=== PATIENT | male | born 1935 | race Caucasian/White ===

== ENCOUNTER → 2020-06-23 13:08 | Outpatient (BNVA) | payer MEDICARE, OTHER, SELFPAY | PROVIDERS: PCP Internal Medicine; Referring Provider Dermatology; Visit Provider Dermatology | DX: Z85.828 Personal history of other malignant neoplasm of skin (principal); L57.0 Actinic keratosis; L82.1 Other seborrheic keratosis; D18.01 Hemangioma of skin and subcutaneous tissue; L91.8 Other hypertrophic disorders of the skin; L21.9 Seborrheic dermatitis, unspecified | CPT/HCPCS: 17000; 17003; 99203 ==

== ENCOUNTER → 2021-06-01 15:38 | Outpatient (BNVA) | payer MEDICARE, OTHER, SELFPAY | PROVIDERS: PCP Internal Medicine; Visit Provider Internal Medicine | DX: R53.83 Other fatigue (principal); E11.9 Type 2 diabetes mellitus without complications; Z85.828 Personal history of other malignant neoplasm of skin; Z87.891 Personal history of nicotine dependence | CPT/HCPCS: 80053; 82607; 82746; 83550; 84443 ==

== ENCOUNTER 2022-01-06 07:37 | Outpatient (CLI) | payer MEDICARE, OTHER, SELFPAY ==
[2022-01-06 08:00] VITALS: BMI 27.3
--- NOTE | 2022-01-06 08:05 | ECG_ITS ---
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 Interpretive Statements NAME OF STUDY: LEXISCAN SESTAMIBI STRESS TEST INDICATION: [Dyspnea on Exertion, ] Procedure: At the baseline, the blood pressure was 132/77 mmHg with a heart rate of 46 bpm. The electrocardiogram showed sinus bradycardia, normal axis with normal ST and T's. The Lexiscan was infused over a period of 20 seconds. A total of 0.4 mg of Lexiscan was infused. The stress phase was continued for a total of 5 minutes. Heart rate was at the end of stress phase was 54 bpm and a blood pressure of 157/81 mmHg. The EKG at the peak infusion revealed since normal sinus rhythm with no significant ST-T wave changes. Sestamibi was injected 20 seconds after the Lexiscan infusion. Blood pressure at the end of recovery phase was 140/82 mmHg with a heart rate of 58 bpm. Conclusion: 1. Normal EKG response to Lexiscan infusion 2. No Lexiscan induced chest pain or cardiac arrhythmia. 3. Normal blood pressure and heart rate response. 4. Sestamibi/sestamibi perfusion scan pending; see separate report. Electronically Signed On 02-04-2022 12:55:54 CDT by Juan Solano M.D. [id number]
--- NOTE | 2022-01-06 08:06 | NMCV_ITS ---
NM jacqui perf SPECT r/s* [id number] Bernardo Ahn Age: 86 Gender: M : 1935 Exam Date: 01/06/2022 08:55 Ordering Phys: Scott Benson MD Technologist: ANNALEE Alvarez Exam Location: [facility] Indications: DYPSNEA STRESS TEST Please [facility] for [facility] findings IMAGE PROTOCOL Rest/Stress 1 Lexiscan Day Radiopharmaceutical Dose (mCi) Administration Site Administered by Rest: Tc-99m 10.6 IV ANNALEE Ma Sestamibi Stress:Tc-99m 32.4 IV ANNALEE Ma Sestamibi Rest: 06-Jan-2022 60 Discovery 630 Stress: 06-Jan-2022 30 Discovery 630 0.4mg Lexiscan. Images obtained in supine and prone position. SPECT RESULTS Technical Quality: Excellent Raw Data Analysis: Normal Image Corrections: No attenuation or motion correction applied Summed Stress Score: 1 Summed Rest Score: 1 Summed Difference Score: 0 PERFUSION FINDINGS SPECT images demonstrate homogeneous tracer distribution throughout the myocardium. FUNCTIONAL RESULTS (calculated via Gated SPECT) Stress Image LV EF (%): 71 Stress EDV (mL):87 TID: 1.04 Stress ESV (mL):25 FUNCTIONAL FINDINGS: There is normal left ventricular systolic function. IMPRESSIONS 1. Normal myocardial perfusion imaging with no evidence of ischemia 2. LV systolic function is normal Juan Solano MD (Electronically Signed) Final Date: 06 January 2022 15:31 S
[2022-01-06] MEDS: regadenoson 0.4 Mg/5 ml Syringe IVP (09:24)
[2022-01-06 09:33] VITALS: BP 140/82; PULSE 58
== END 2022-01-06 07:38 | disposition home or self-care (01) ==
PROVIDERS: Family Provider Internal Medicine; PCP Internal Medicine; Visit Provider Internal Medicine
DX: R06.09 Other forms of dyspnea (principal); R06.02 Shortness of breath
CPT/HCPCS: 78452; 93017; A9500; J2785

== ENCOUNTER → 2023-01-22 08:48 | Outpatient (BNVA) | payer MEDICARE, OTHER, SELFPAY | PROVIDERS: Family Provider Internal Medicine; PCP Internal Medicine; Referring Provider Dermatology; Visit Provider Podiatrist Foot & Ankle Surgery | DX: M20.42 Other hammer toe(s) (acquired), left foot (principal); M20.41 Other hammer toe(s) (acquired), right foot; M25.871 Other specified joint disorders, right ankle and foot; L60.3 Nail dystrophy | CPT/HCPCS: 73630; 99204 ==

== ENCOUNTER → 2023-04-26 13:21 | Outpatient (BNVA) | payer MEDICARE, OTHER, SELFPAY | PROVIDERS: Family Provider Internal Medicine; PCP Internal Medicine; Visit Provider Podiatrist Foot & Ankle Surgery | DX: M20.42 Other hammer toe(s) (acquired), left foot (principal); M20.41 Other hammer toe(s) (acquired), right foot; M25.871 Other specified joint disorders, right ankle and foot; M25.872 Other specified joint disorders, left ankle and foot | CPT/HCPCS: 99214 ==

== ENCOUNTER → 2023-06-14 13:52 | Outpatient (BNVA) | payer MEDICARE, OTHER, SELFPAY | PROVIDERS: Family Provider Internal Medicine; Visit Provider Nurse Practitioner Family | DX: Z85.828 Personal history of other malignant neoplasm of skin (principal); D22.5 Melanocytic nevi of trunk; L81.4 Other melanin hyperpigmentation; L82.1 Other seborrheic keratosis; L57.8 Other skin changes due to chronic exposure to nonionizing radiation; L57.0 Actinic keratosis | CPT/HCPCS: 17000; 17003; 99213 ==

== ENCOUNTER 2024-05-12 08:49 | Emergency (ER) | payer MEDICARE, OTHER, SELFPAY ==
[2024-05-12 09:55] VITALS: BP 109/72; PULSE 69; RESP 18; TEMP 36.8; O2SAT 96; BMI 25.0
--- NOTE | 2024-05-12 12:04 | W.ED.BACK ---
Documented by User: AURELIANO Kelley 05/12/24 15:19 HPI - Back Pain/Injury General: Chief Complaint: Back Pain/Injury Stated Complaint: low back/ leg pain Time Seen by Provider: 05/12/24 11:55 Source: patient and family Mode of arrival: wheelchair Limitations: no limitations History of Present Illness: Patient is a nice 89-year-old male who presents to ED today along with his 2 daughters for evaluation of lower back pain. Family states he has complained of pain at least over a month regarding his lower back. He has been seen twice through [facility] walk-in clinics as well as last week at [facility]. He has been on steroids and muscle relaxers. He does feel like the steroids helped for a few days but is now back to having pain. He describes as a throbbing sensation to his lower back. He states his back pain does seem to interfere with his gait stating that his legs sometimes will feel like Jell-O . Family does report an approximate 10 pound weight loss noted at his last visit at [facility]. Family also reporting intermittent sweats and decreased appetite. MD elicited complaint: back pain Onset (ago): week(s) Timing: constant Severity: moderate Similar Symptoms Previously: No Location: lumbar spine Radiation: left upper leg and right upper leg Exacerbating factors: movement, walking and lifting Relieving factors: none Associated symptoms: Reports no associated symptoms, chills, difficulty walking and urinary frequency (BPH like symptoms-frequent night urination); Deny abdominal pain, dysuria, fever(s), nausea, urinary urgency or vomiting Work related injury: No Review of Systems Const: Reports: chills, change in appetite and change in weight; Denies: fever(s) or body aches Card: Denies: chest pain Resp: Denies: dyspnea GI: Denies: abdominal pain, nausea, vomiting or diarrhea : Reports: urinary frequency; Denies: flank pain, dysuria, urinary urgency or hematospermia Musc: Reports: back pain; Denies: neck pain, extremity pain, extremity swelling, joint pain or joint swelling Skin/Breast: Denies: rash Neuro: Reports: weakness in extremities and difficulty walking; Denies: headache(s), numbness in extremities or sensory changes PFS ED PFSH: Medical History Pain of right sacroiliac joint Sciatica, right side Fatigue History of nonmelanoma skin cancer Social History Smoking and tobacco/nicotine status: never used tobacco/nicotine Physical Exam Const: COMMON NORMALS: no acute distress, average body habitus, patient oriented x3, no limitations, healthy appearing, alert and well nourished GENERAL APPEARANCE: cooperative Neck/C-Spine: COMMON NORMALS: no lymphadenopathy Resp: COMMON NORMALS: normal respiratory effort and clear to auscultation bilaterally AUSCULTATION: clear to auscultation bilaterally Cardio: COMMON NORMALS: regular rate and regular rhythm RATE: regular rate RHYTHM: regular rhythm GI: COMMON NORMALS: Normal to inspection, nondistended, normoactive bowel sounds present, Soft to palpation and non-tender PALPATION: Yes Soft to palpation : COMMON NORMALS: Yes no CVA tenderness BLADDER/KIDNEY EXAM: Yes no CVA tenderness Back/Pelvis: COMMON NORMALS: no CVA tenderness THORACIC SPINE/UPPER BACK: No thoracic spinal tenderness LUMBAR SPINE/LOWER BACK: Yes lumbar spinal tenderness and Yes straight leg raise negative bilaterally PELVIS: Yes buttocks normal SACRUM: tenderness COCCYX: no tenderness Extremity: COMMON NORMALS: normal to inspection, full ROM and capillary refill normal GENERAL: Yes normal exam except as noted Neuro: COMMON NORMALS: patient oriented x3, moves all extremities, no focal motor deficits and no sensory deficits noted SENSORIUM/ORIENTATION: Yes alert MOTOR EXAM: 5/5 motor strength present throughout Course Vital Signs: Vital signs: Vital Signs Temperature 98.3 F 05/12/24 09:55 Pulse Rate 81 05/12/24 15:41 Respiratory Rate 16 05/12/24 14:30 Blood Pressure 143/62 05/12/24 14:30 Pulse Oximetry 96 05/12/24 15:41 Oxygen Delivery Me thod Room Air 05/12/24 14:30 MDM - Back Pain/Injury Medical Decision Making Patient is a nice 89-year-old male here for over a month of lower back pain. He has been seen on 3 different visits for this. Based on his history, unfortunately I suspected metastatic bone cancer. CT imaging of his lumbar spine and bony pelvis were obtained which does confirm this. Suspect colon or prostate for primary site however further imaging is needed. Discussed with Dr. Mcnair who recommends follow-up with his primary care provider for further scans and referral for biopsy. They can then follow-up with oncology/hematology. Will give him pain medications to help with his discomfort. He does live alone and is not wanting senior care facility. Family is there to help him if/when needed. Of note-recent labs through [facility] obtained and shows an alk phos of 1500 consistent with his bony involvement. PSA was also 12.0. Medical Records I reviewed the patient's medical records. Labs I reviewed the patient's lab results. Radiology Impressions Lumbar Spine CT 05/12/24 12:35 IMPRESSION: 1. Diffuse sclerotic lesions throughout the lumbar spine and bony pelvis suspicious for blastic metastasis. 2. Mild compression of the superior endplate of L2. 3. Slight anterolisthesis L4 on L5 with severe central canal stenosis due to disc bulge and facet arthropathy and ligamentum flavum hypertrophy. 4. Partially visualized retroperitoneal and periaortic lymphadenopathy. Pelvis CT 05/12/24 12:35 IMPRESSION: 1. Diffuse sclerotic lesions throughout the visualized bony structures suspicious for blastic metastasis. 2. Para-aortic and retroperitoneal lymphadenopathy extending to both iliac change. Internal iliac and pelvic sidewall lymphadenopathy. 3. Enlarged prostate measuring 4.8 cm with bladder outlet obstruction. Recommend correlation PSA. All radiology interpretation(s) finalized by discharge Discharge Plan Discharge Patient Disposition: Home Clinical Impression: Cancer, metastatic to bone Condition: Stable Prescriptions: New hydrocodone-acetaminophen 5-325 mg tablet 1 tab PO .4-6 PRN (Reason: pain) Qty: 20 0RF No Action (DME) CO-Poly Custom insoles See Rx Instructions .Route .MEDSUPPLY Qty: 1 0RF Rx Instructions: As directed by [facility] tizanidine 4 mg tablet 4 mg PO Q6H PRN (Reason: LOW BACK PAIN/SPASMS) methylprednisolone 4 mg tablets,dose pack See Rx Instructions .ROUTE .COMPLEX Rx Instructions: TAKE DIRECTED PER PACKAGE INSTRUCTIONS. Discharge Orders: Discharge ED (Routine); Ordered 05/12/24 Ordered By: Fallon Zhang Patient Instructions: Opioid Safety, Pain Management Activity Restrictions/Additional Instructions: As we discussed I would like him to follow-up with his primary care provider soon as possible. They will need to do additional scans to determine primary location of cancer and set up for biopsy. From there patient will need referral to oncology/hematology. Pain medications have been called into his pharmacy of choice. Recommend using a walker or some type of assistance at all times with ambulation to help prevent falls. 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 [employer] Fwd Documented by User: Joel Mcnair, 05/12/24 18:20 HPI - Back Pain/Injury General: Chief Complaint: Back Pain/Injury Stated Complaint: low back/ leg pain Time Seen by Provider: 05/12/24 11:55 PFSH ED PFSH: Medical History Pain of right sacroiliac joint Sciatica, right side Fatigue History of nonmelanoma skin cancer Social History Smoking and tobacco/nicotine status: never used tobacco/nicotine Course Vital Signs: Vital signs: Vital Signs Temperature 98.3 F 05/12/24 09:55 Pulse Rate 81 05/12/24 15:41 Respiratory Rate 16 05/12/24 14:30 Blood Pressure 143/62 05/12/24 14:30 Pulse Oximetry 96 05/12/24 15:41 Oxygen Delivery Me thod Room Air 05/12/24 14:30 MDM - Back Pain/Injury Medical Decision Making Patient is a nice 89-year-old male here for over a month of lower back pain. He has been seen on 3 different visits for this. Based on his history, unfortunately I suspected metastatic bone cancer. CT imaging of his lumbar spine and bony pelvis were obtained which does confirm this. Suspect colon or prostate for primary site however further imaging is needed. Discussed with Dr. Mcnair who recommends follow-up with his primary care provider for further scans and referral for biopsy. They can then follow-up with oncology/hematology. Will give him pain medications to help with his discomfort. He does live alone and is not wanting senior care facility. Family is there to help him if/when needed. Of note-recent labs through [facility] obtained and shows an alk phos of 1500 consistent with his bony involvement. PSA was also 12.0. Chart reviewed and patient discussed with midlevel. Agree with assessment and plan. Labs Radiology Impressions Lumbar Spine CT 05/12/24 12:35 IMPRESSION: 1. Diffuse sclerotic lesions throughout the lumbar spine and bony pelvis suspicious for blastic metastasis. 2. Mild compression of the superior endplate of L2. 3. Slight anterolisthesis L4 on L5 with severe central canal stenosis due to disc bulge and facet arthropathy and ligamentum flavum hypertrophy. 4. Partially visualized retroperitoneal and periaortic lymphadenopathy. Pelvis CT 05/12/24 12:35 IMPRESSION: 1. Diffuse sclerotic lesions throughout the visualized bony structures suspicious for blastic metastasis. 2. Para-aortic and retroperitoneal lymphadenopathy extending to both iliac change. Internal iliac and pelvic sidewall lymphadenopathy. 3. Enlarged prostate measuring 4.8 cm with bladder outlet obstruction. Recommend correlation PSA. Discharge Plan Discharge Patient Disposition: Home Clinical Impression: Cancer, metastatic to bone Condition: Stable Prescriptions: New hydrocodone-acetaminophen 5-325 mg tablet 1 tab PO .4-6 PRN (Reason: pain) Qty: 20 0RF No Action (DME) CO-Poly Custom insoles See Rx Instructions .Route .MEDSUPPLY Qty: 1 0RF Rx Instructions: As directed by [facility] tizanidine 4 mg tablet 4 mg PO Q6H PRN (Reason: LOW BACK PAIN/SPASMS) methylprednisolone 4 mg tablets,dose pack See Rx Instructions .ROUTE .COMPLEX Rx Instructions: TAKE DIRECTED PER PACKAGE INSTRUCTIONS. Discharge Orders: Discharge ED (Routine); Ordered 05/12/24 Ordered By: Fallon Zhang Patient Instructions: Opioid Safety, Pain Management Activity Restrictions/Additional Instructions: As we discussed I would like him to follow-up with his primary care provider soon as possible. They will need to do additional scans to determine primary location of cancer and set up for biopsy. From there patient will need referral to oncology/hematology. Pain medications have been called into his pharmacy of choice. Recommend using a walker or some type of assistance at all times with ambulation to help prevent falls. 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
--- NOTE | 2024-05-12 12:35 | CT_ITS ---
WS: [id number] CT LUMBAR SPINE TECHNIQUE: Noncontrast CT of the lumbar spine with coronal and sagittal reformatted images. CLINICAL INFORMATION: pain COMPARISON: None. DLP: 951.[address] scans at [facility] use at least one of these dose optimization techniques: automated e xposure control; mA and/or kV adjustment per patient size (includes targeted exams where dose is matc hed to clinical indication); or iterative reconstruction. FINDINGS: Diffuse sclerotic lesions throughout the visualized bony structures suspicious for blastic metastasis . Mild compression superior end plate L2. L1-L2: Normal L2-L3: Mild annular bulging. Moderate facet arthropathy. Mild bilateral foraminal narrowing. L3-L4: Mild annular bulging. Moderate central canal stenosis. Moderate facet arthropathy and ligament um flavum hypertrophy. L4-L5: Severe central canal stenosis. Advanced facet arthropathy with ligamentum flavum hypertrophy. Slight anterolisthesis L4 on L5. Mild LEFT and no significant RIGHT foraminal narrowing. L5-S1: Mild disc bulging with endplate ridging. Moderate to advanced facet arthropathy. Foramen are p atent. Small esophageal hiatal hernia. Nodular LEFT adrenal gland. RIGHT adrenal gland is normal. Periaortic and retroperitoneal lymphadenopathy. Partially visualized RIGHT hepatic cyst. CT/CT lumbar spine wo con* [id number] IMPRESSION: 1. Diffuse sclerotic lesions throughout the lumbar spine and bony pelvis suspi cious for blastic metastasis. 2. Mild compression of the superior endplate of L2. 3. Slight anterolisthesis L4 on L5 with severe central canal stenosis due to d isc bulge and facet arthropathy and ligamentum flavum hypertrophy. 4. Partially visualized retroperitoneal and periaortic lymphadenopathy.
--- NOTE | 2024-05-12 12:35 | CT_ITS ---
WS: [id number] Noncontrast CT bony pelvis TECHNIQUE: CT bony pelvis with coronal and sagittal reformatted images. CLINICAL INFORMATION: pain COMPARISON: None. DLP: 951.[address] scans at [facility] use at least one of these dose optimization techniques: automated e xposure control; mA and/or kV adjustment per patient size (includes targeted exams where dose is matc hed to clinical indication); or iterative reconstruction. FINDINGS: Diffuse sclerotic lesions throughout the visualized bony structures likely due to blastic metastasis. Enlarged prostate measuring 4.8 cm. Recommend correlation for PSA. Evidence of bladder outlet obstru ction. Sigmoid diverticulosis. Partially visualized periaortic and retroperitoneal lymphadenopathy. N o inguinal lymphadenopathy. Bilateral internal iliac and pelvic sidewall lymphadenopathy. CT/CT bony pelvis [id number] IMPRESSION: 1. Diffuse sclerotic lesions throughout the visualized bony structures suspici ous for blastic metastasis. 2. Para-aortic and retroperitoneal lymphadenopathy extending to both iliac kuldeep nge. Internal iliac and pelvic sidewall lymphadenopathy. 3. Enlarged prostate measuring 4.8 cm with bladder outlet obstruction. Recomme nd correlation PSA.
[2024-05-12 12:54] VITALS: RESP 20; O2SAT 96
[2024-05-12] MEDS: morphine 4 mg/mL SDV 1 mL IVP (12:54)
[2024-05-12] MEDS: orphenadrine 30 mg/mL Inj 2 mL 60 MG IV (12:58)
[2024-05-12] MEDS: dexamethasone 10 mg/mL INJ 8 MG IV (13:01)
[2024-05-12 13:04] VITALS: BP 115/65; PULSE 67; RESP 16; O2SAT 93
[2024-05-12 14:30] VITALS: BP 143/62; PULSE 68; RESP 16; O2SAT 93
[2024-05-12 15:41] VITALS: PULSE 81; O2SAT 96
== END 2024-05-12 15:44 | disposition home or self-care (01) ==
PROVIDERS: Emergency Provider Physician Assistant
DX: C79.51 Secondary malignant neoplasm of bone (principal); C80.1 Malignant (primary) neoplasm, unspecified
CPT/HCPCS: 72131; 72192; 96374; 96375; 99285; J1100; J2270; J2360

== ENCOUNTER 2024-05-27 09:07 | Outpatient (CLI) | payer MEDICARE, OTHER, SELFPAY ==
[2024-05-27 10:05] LABS: Basophils % 0.6 %; Eosinophils % 0.6 %; Lymphocytes # 0.7 10^3/uL (0.8-4.8); Lymphocytes % 11.6 %; Mean Corpuscular HGB Conc 31.6 g/dL (30-55); Mean Corpuscular Hemoglobin 28.7 pg (27-33); Mean Corpuscular Volume 90.9 fl (82-101); Mean Platelet Volume 9.8 fL (7.4-10.4); Monocytes # 0.5 10^3/uL (0.2-0.9); Monocytes % 8.3 %; Neutrophils # 4.77 10^3/uL (1.8-7.7); Neutrophils % 76.7 %; Nucleated Red Blood Cells % 0 %; Platelet Count 273 10^3/cmm (157-399); Red Blood Count 3.41 10^6/uL (3.85-5.65); Red Cell Distribution Width 14.2 % (12.1-15.1); White Blood Count 6.23 10^3/uL (3.29-11.43)
[2024-05-27 10:21] LABS: Anion Gap 14.8 (5-19); Blood Urea Nitrogen 15 mg/dL (8-23); Calcium 8.2 mg/dL (8.5-10.5); Carbon Dioxide 24 mmol/L (22-29); Chloride 106 mmol/L (98-107); Glucose 104 mg/dL (65-115); Osmolality Calculated 293 mOsm/kg (285-295); Potassium 3.8 mmol/L (3.5-5.1); Sodium 141 mmol/L (136-145)
== END 2024-05-27 09:08 | disposition home or self-care (01) ==
LOC: LAB 09:11
PROVIDERS: PCP Nurse Practitioner Family; Visit Provider Urology
DX: Z01.818 Encounter for other preprocedural examination (principal); R97.20 Elevated prostate specific antigen [PSA]
CPT/HCPCS: 36415; 80048; 85025

== ENCOUNTER → 2024-05-28 08:48 | Outpatient (BNVA) | payer MEDICARE, OTHER, SELFPAY | PROVIDERS: PCP Nurse Practitioner Family; Visit Provider Internal Medicine Cardiovascular Disease | DX: Z01.818 Encounter for other preprocedural examination (principal); R97.20 Elevated prostate specific antigen [PSA] | CPT/HCPCS: 93005 ==

== ENCOUNTER 2024-06-23 07:41 | Oncology outpatient (recurring) (ONCR) | payer MEDICARE, OTHER, SELFPAY ==
--- OUTSIDE RECORDS SUMMARY | 2024-06-23 07:26 | XMS_ITS ---
Author Name Unknown Organization [facility] Address [address] [place] [address] Care Team Providers Care Ore Mixer Name Role Phone Michellematilde POEN Lisa Primary Care Provider UnavailTAM Del Valle Unavailable [phone] JHONNY PULIDO Unavailable [phone] Allergies No Known Allergies REASON FOR VISIT Biopsy Antibiotic Medications Medication SIG (Take, Route, Frequency, Duration) Notes Start Date End Date Status Cipro 500 MG 1 tablet Orally ever y 12 hrs for 3 days start on 06/16/2024 06/12/2024 06/15/2024 Active Encounters Encounter Location Date Provider Diagnosis [facility] [address] [place] [address] 06/12/2024 JHONNY PULIDO Plan Of Treatment Medication Medication Name Sig Start Date Stop Date Notes Cipro 500 MG 1 tablet Orally ever y 12 hrs for 3 days 06/12/2024 06/15/2024 start on 06/16/2024 Next Appt Details Provider Name:JHONNY Pak, 07/03/2024 04:15:00 PM, [address] [place], [address], Progress Notes * Harman EDWARDSOB:1935 ( 89 yo M)Acc No.[id number]:06/12/2024 Patient:?LUCASBernardo Carr :1935???Age:89 Y???Sex:Male Address:[address] [place] [address], [address] * Refills? Start Cipro Tablet, 500 MG, Orally, 6, 1 tablet, every 12 hrs, 3 days, Refills=0 Subjective: * Chief Complaints: * ???Biopsy Antibiotic * Medical History:? * Surgical History:? * Hospitalization/Major Diagno stic Procedure:? * Medications:? * Allergies:?N.K.D.A.no[Allerg ies Verified] Objective: * Vitals:? * Physical Examination:? Assessment: Plan: * Treatment: * Procedure Codes:? * true * Date:? Generated for Bozena jacob/Spencer/Tal on:?06/23/2024 07:26 AM CDT
--- OUTSIDE RECORDS SUMMARY | 2024-06-23 07:26 | XMS_ITS | Patient Health Record ---
Author Name Unknown Organization [facility] [employer] Address [address] [place] [address] Care Team Providers Care Grounds Maintenance Manager Name Role Phone Michelle POENEmman Primary Care Provider TAM Headley Unavailable [phone] JHONNY FARMER Unavailable [phone] Allergies No Known Allergies Results Component Value Reference Range Notes UTI Pathogen Panel PCR Reviewed date:05/23/2024 10:01:09 AM Interpretation: Performing Lab: Notes/Report: Urinalysis, Routine Reviewed date:05/22/2024 11:02:04 AM Interpretation: Performing Lab: Notes/Report: Urine-Color yellow Appearance clear Glucose - Bilirubin 2+ Ketones trace Specific Marmaduke 1.030 Occult Blood trace pH 6.0 Urine Protein - Urobilinogen,Semi-Qn 2+ Nitrite, Urine - WBC Esterase 3+ Reason For Referral No Information Medications Medication SIG (Take, Route, Frequency, Duration) Notes Start Date End Date Status HYDROcodone-Acetaminophen 5-325 MG 1 tablet as needed Orally every 6 hrs Active Bicalutamide 50 MG TAKE 1 TABLET BY YAN TH DAILY for 90 Active Problems Problem Type SNOMED Code ICD Code Onset Dates Problem Status W/U Status Risk Notes Problem Malignant tumor of prostate (163152963) Prostate cancer (C61) Active confirmed Vital Signs Heart Rate 66 /min 05/22/2024 Blood pressure diastolic 75 mm Hg 05/22/2024 Height-cm 172.72 cm 05/22/2024 Weight-kg 75.3 kg 05/22/2024 Height 68 in 05/22/2024 Blood pressure systolic 121 mm Hg 05/22/2024 Weight 166 lbs 05/22/2024 BMI 25.24 kg/m2 05/22/2024 Procedures Procedure Date Ordered Date Performed Result Body Sit e Bladder Scan 05/22/2024 05/22/2024 N/A Encounters Encounter Location Date Provider Diagnosis [facility], [facility] [address] [place] [address] 06/17/2024 JHONNY VELÁSQUEZER Elevated PSA R97.20 [facility] [employer], [facility] [address] [place] [address] 05/22/2024 TAM RYAN Prostate cancer C61 ; Elevated PSA R97.20 ; Bone lesion M89.9 ; Increased urinary frequency R35.0 ; Abnormal abdominal CT scan R93.5 ; Abnormal urine R82.90 and Surgical counseling visit Z71.89 [facility], [facility] [address] [facility] [address] [place] [address] 05/15/2024 [facility] [employer], [facility] [address] [facility] [address] [place] [address] 05/22/2024 [facility] Preop testing Z01.81 8 and Elevated PSA R97.20 [facility] [employer], [facility] [address] [place] [address] 06/12/20[address]AM [address]YAN [facility] [employer], [facility] [address] [place] [address] 06/12/2024 JHONNY VELÁSQUEZER Assessments Encounter Date Diagnosis (ICD Code) Assessment Notes Treatment Notes Treatment Clinical Notes 05/22/2024 Elevated PSA (ICD-10 - R97.20) 05/22/2024 Prostate cancer (ICD-10 - C61) 05/22/2024 Preop testing (ICD-10 - Z01.818) 06/17/2024 Elevated PSA (ICD-10 - R97.20) 05/22/2024 Bone lesion (ICD-10 - M89.9) 05/22/2024 Elevated PSA (ICD-10 - R97.20) 05/22/2024 Increased urinary frequency (ICD-10 - R35.0) 05/22/[address] scan (ICD-10 - R93.5) 05/22/2024 Abnormal urine (ICD-10 - R82.90) 05/22/2024 Surgical counseling visit (ICD-10 - Z71.89) 05/22/2024 Other UA abnormal, PVR 0 mL. Sent for PCR, call with results and treat as indicated. CT of the pelvis on 05/12/2024 reveals diffuse sclerotic lesions throughout the bony structures likely to be blastic metastases. Para-aortic and retroperitoneal lymphadenopathy, internal iliac and pelvic sidewall lymphadenopathy. Enlarged prostate measuring 4.8 cm with evidence of bladder outlet obstruction. I have personally reviewed imaging, along with radiology report and discussed with Dr. Farmer. I have reviewed imaging findings with patient and his family. Elevated PSA of 12.1. Per recommendations Dr. Farmer, recommend patient start bicalutamide, obtain bone scan, and we will set him up for prostate biopsy for definitive diagnosis and formulation of treatment plan moving forward including referral to [facility] once we have all pathology and bone scan they will need. He is agreeable. Administration side effect profile of bicalutamide reviewed. Rx sent to pharmacy. Obtain rectal swab today. How prostate biopsy is performed along with risk/benefits and postoperative expectations reviewed with patient and his daughters. Will be given preop instructions today and schedule for soonest biopsy date. I have given him a pamphlet about prostate cancer to review. All questions that were asked were answered. Patient is satisfied plan of care. Schedule for TRUS prostate biopsy with Dr. Farmer soonest available. Plan Of Treatment Pending Test Test Name Order Date Bone Scan [id number] 05/22/2024 Basic Metabolic Panel 05/22/2024 CBC w/ Auto Diff 05/22/2024 Electrocardiogram, 12 Lead Tracing-[id number] 05/22/2024 Next Appt Details Provider Name:JHONNY Pak, 07/03/2024 04:15:00 PM, [address] [place], [address], Insurance Providers Payer Name Payer Address Payer Phone Subscriber Number Group Number Insured Name Patient Relationship to Insured Coverage Start Date Coverage End Date [place] [address] [facility] AURELIANO NIX [id number] Bernardo Ahn Self - patient is the insured for Life Secondary to Medicare [address] [place], [place] [id number] [phone] [id number] Bernardo Ahn Self - patient is the insured Medical (General) History Surgical History Surgery Date(Month/Year) right rotator cuff
--- OUTSIDE RECORDS SUMMARY | 2024-06-23 07:26 | XMS_ITS ---
Author Name Unknown Organization [facility] Address [address] [place] [address] Care Team Providers Care Pharmaceutical Scientist Name Role Phone Michelle Lisa KING Primary Care Provider TAM Headley Unavailable [phone] REASON FOR VISIT PreSurgery ABX Encounters Encounter Location Date Provider Diagnosis [facility] [address] [facility] [place] [address] 06/12/2024 TAM RYAN Plan Of Treatment Next Appt Details Provider Name:JHONNY Pak, 07/03/2024 04:15:00 PM, [address] [place], [address], Progress Notes * Harman EDWARDSOB:1935 ( 89 yo M)Acc No.[id number]:06/12/2024 Patient:?Bernardo EDWARDS :1935???Age:89 Y???Sex:Male Address:[address] [place] [address], [address] * true * Date:? Generated for Mildredi cecil/Spencer/eTransmitting on:?06/23/2024 07:26 AM CDT
--- OUTSIDE RECORDS SUMMARY | 2024-06-23 07:26 | XMS_ITS ---
Author Name Unknown Organization [employer] Address [address] [place] [address] Care Team Providers Care Steamship Agent Name Role Phone Lisa Martinez APRN Primary Care Provider Unavaila TAM Chou Unavailable [phone] JHONNY PULIDO Unavailable [phone] REASON FOR VISIT TRUS Prostate Biopsy @ [facility] Encounters Encounter Location Date Provider Diagnosis [facility] [address] [place] [address] 06/17/2024 JHONNY PULIDO Elevated PSA R97.20 Assessments Encounter Date Diagnosis (ICD Code) Assessment Notes Treatment Notes Treatment Clinical Notes 06/17/2024 Elevated PSA (ICD-10 - R97.20) Plan Of Treatment Next Appt Details Provider Name:JHONNY Pak, 07/03/2024 04:15:00 PM, [address] [place], [address], Progress Notes * LUCASHarman CarrOB:1935 ( 89 yo M)Acc No.[id number]:06/17/2024 Patient:?Bernardo EDWARDS Provider:?JHONNY PULIDO MD :1935???Age:89 Y???Sex:Male Berry e:06/17/2024 Address:[address] [place], [place] [id number] Pcp:Lisa Martinez APRN * Billing Information: * Visit Code:? * Procedure Codes:? 63314 BIOPSY OF PROSTATE. 68536 ECHO EXAM, TRANSRECTAL. Modifiers: 26 * Electronic signature of AUST IN MD ASHOK on 06/23/2024 at 07:25 AM CDT Sign off status: Pending * Provider:?JHONNY PULIDO MD Date:?05/30 Generated for Bozena jacob/Spencer/Tal on:?06/23/2024 07:25 AM CDT
--- OUTSIDE RECORDS SUMMARY | 2024-06-23 07:26 | XMS_ITS ---
Author Name Unknown Organization Unknown ALLERGIES AND ADVERSE REACTIONS No information ASSESSMENT No information CHIEF COMPLAINT No information MEDICATIONS No information OBJECTIVE DATA No information PHYSICAL EXAMINATION No information TREATMENT PLAN Planned Care Start Date Provider Encounter for Check-up [id number] [facility] PROBLEMS No information RESULTS No information REVIEW OF SYSTEMS No information SUBJECTIVE DATA No information VITAL SIGNS No information
[2024-06-23 08:46] LABS: Basophils % 0.7 %; Eosinophils # 0.2 10^3/uL (0.0-0.8); Eosinophils % 3.7 %; Hematocrit 31.4 % (37-53); Lymphocytes # 0.8 10^3/uL (0.8-4.8); Lymphocytes % 19.3 %; Mean Corpuscular HGB Conc 31.8 g/dL (30-55); Mean Corpuscular Hemoglobin 29.9 pg (27-33); Monocytes # 0.5 10^3/uL (0.2-0.9); Monocytes % 13.2 %; Neutrophils # 2.53 10^3/uL (1.8-7.7); Neutrophils % 61.9 %; Nucleated Red Blood Cells % 0 %; Platelet Count 193 10^3/cmm (157-399); Red Blood Count 3.34 10^6/uL (3.85-5.65); Red Cell Distribution Width 18.6 % (12.1-15.1); White Blood Count 4.09 10^3/uL (3.29-11.43)
[2024-06-23 09:16] LABS: Alanine Aminotransferase 7 U/L (0-41); Albumin Level 3.5 g/dL (3.5-5.2); Anion Gap 14.8 (5-19); Aspartate Amino Transferase 15 U/L (0-40); Blood Urea Nitrogen 8 mg/dL (8-23); Carbon Dioxide 23 mmol/L (22-29); Chloride 109 mmol/L (98-107); Creatinine Clr Calc Pharmacy 65.0152; Globulin 2.3 g/dL (1.3-4.6); Glucose 97 mg/dL (65-115); Osmolality Calculated 294 mOsm/kg (285-295); Potassium 3.8 mmol/L (3.5-5.1); Sodium 143 mmol/L (136-145); Total Bilirubin 1.1 mg/dL (0.15-1.2); Total Protein 5.8 g/dL (6.6-8.7)
[2024-06-23 09:31] LABS: Alkaline Phosphatase 3686 U/L (40-130)
[2024-06-24 09:07] LABS: Vitamin B12 191 pg/mL (232-1245)
== END 2024-06-28 23:59 | disposition home or self-care (01) ==
PROVIDERS: PCP Nurse Practitioner Family; Visit Provider Internal Medicine Medical Oncology
DX: Z53.9 Procedure and treatment not carried out, unspecified reason (principal); C79.51 Secondary malignant neoplasm of bone; C80.1 Malignant (primary) neoplasm, unspecified; Z79.818 Long term (current) use of other agents affecting estrogen receptors and estrogen levels
CPT/HCPCS: 36415; 80053; 82607; 84153; 85025; 99205

== ENCOUNTER 2024-07-15 13:41 | Oncology outpatient (recurring) (ONCR) | payer MEDICARE, OTHER, SELFPAY ==
[2024-07-15] MEDS: denosumab 120 mg SDV SUBCUT (14:21)
[2024-07-15 14:40] VITALS: BP 133/74; PULSE 72; RESP 16; TEMP 36.3; O2SAT 98
== END 2024-07-28 23:59 | disposition home or self-care (01) ==
PROVIDERS: PCP Nurse Practitioner Family; Visit Provider Internal Medicine Medical Oncology
DX: Z79.899 Other long term (current) drug therapy (principal); C79.51 Secondary malignant neoplasm of bone
CPT/HCPCS: 96372; J0897

== ENCOUNTER 2024-08-12 12:06 | Oncology outpatient (recurring) (ONCR) | payer MEDICARE, OTHER, SELFPAY ==
[2024-08-12 12:35] LABS: Basophils % 0.7 %; Eosinophils # 0.2 10^3/uL (0.0-0.8); Eosinophils % 4.5 %; Hematocrit 37.4 % (37-53); Lymphocytes # 1.1 10^3/uL (0.8-4.8); Lymphocytes % 23.9 %; Mean Corpuscular HGB Conc 31.6 g/dL (30-55); Mean Corpuscular Hemoglobin 31.4 pg (27-33); Mean Corpuscular Volume 99.5 fl (82-101); Mean Platelet Volume 10.5 fL (7.4-10.4); Monocytes # 0.5 10^3/uL (0.2-0.9); Monocytes % 11.3 %; Neutrophils # 2.63 10^3/uL (1.8-7.7); Neutrophils % 59.4 %; Nucleated Red Blood Cells % 0 %; Platelet Count 227 10^3/cmm (157-399); Red Blood Count 3.76 10^6/uL (3.85-5.65); Red Cell Distribution Width 16.5 % (12.1-15.1); White Blood Count 4.43 10^3/uL (3.29-11.43)
[2024-08-12 13:06] LABS: Carcinoembryonic Antigen 1.2 ng/mL (0.0-4.7)
[2024-08-12 13:17] LABS: Alanine Aminotransferase 11 U/L (0-41); Aspartate Amino Transferase 19 U/L (0-40); Blood Urea Nitrogen 9 mg/dL (8-23); Calcium 7.5 mg/dL (8.5-10.5); Carbon Dioxide 21 mmol/L (22-29); Chloride 111 mmol/L (98-107); Globulin 2.1 g/dL (1.3-4.6); Glucose 93 mg/dL (65-115); Osmolality Calculated 290 mOsm/kg (285-295); Sodium 141 mmol/L (136-145); Total Bilirubin 1.1 mg/dL (0.15-1.2); Total Protein 6.1 g/dL (6.6-8.7)
[2024-08-12 13:28] LABS: Anion Gap 13.1 (5-19); Potassium 4.1 mmol/L (3.5-5.1)
[2024-08-12 13:29] LABS: Alkaline Phosphatase 1006 U/L (40-130)
[2024-08-12] MEDS: denosumab 120 mg SDV SUBCUT (15:12)
[2024-08-12 15:15] VITALS: BP 124/78; PULSE 74; RESP 18; TEMP 36.6; O2SAT 98
== END 2024-08-28 23:59 | disposition home or self-care (01) ==
PROVIDERS: PCP Nurse Practitioner Family; Visit Provider Internal Medicine Medical Oncology
DX: C79.51 Secondary malignant neoplasm of bone (principal); Z79.899 Other long term (current) drug therapy; Z87.891 Personal history of nicotine dependence; Z79.818 Long term (current) use of other agents affecting estrogen receptors and estrogen levels; C61 Malignant neoplasm of prostate; E83.51 Hypocalcemia; E53.8 Deficiency of other specified B group vitamins
CPT/HCPCS: 36415; 80053; 82378; 85025; 96372; 99215; J0897

== ENCOUNTER 2024-09-10 08:15 | Oncology outpatient (recurring) (ONCR) | payer MEDICARE, OTHER, SELFPAY ==
[2024-09-09 16:06] LABS: Eosinophils # 0.3 10^3/uL (0.0-0.8); Eosinophils % 8.9 %; Hematocrit 37.4 % (37-53); Lymphocytes # 0.9 10^3/uL (0.8-4.8); Lymphocytes % 24.4 %; Mean Corpuscular HGB Conc 33.2 g/dL (30-55); Mean Corpuscular Hemoglobin 32.6 pg (27-33); Mean Corpuscular Volume 98.4 fl (82-101); Mean Platelet Volume 10.1 fL (7.4-10.4); Monocytes # 0.5 10^3/uL (0.2-0.9); Monocytes % 13.1 %; Neutrophils # 1.99 10^3/uL (1.8-7.7); Neutrophils % 52.3 %; Nucleated Red Blood Cells % 0 %; Platelet Count 212 10^3/cmm (157-399); Red Cell Distribution Width 14.8 % (12.1-15.1); White Blood Count 3.81 10^3/uL (3.29-11.43)
[2024-09-09 16:31] LABS: Alanine Aminotransferase 34 U/L (0-41); Alkaline Phosphatase 600 U/L (40-130); Anion Gap 9.3 (5-19); Aspartate Amino Transferase 31 U/L (0-40); Blood Urea Nitrogen 16 mg/dL (8-23); Calcium 8.1 mg/dL (8.5-10.5); Carbon Dioxide 26 mmol/L (22-29); Chloride 113 mmol/L (98-107); Creatinine Clr Calc Pharmacy 66.7525; Globulin 2.1 g/dL (1.3-4.6); Glucose 114 mg/dL (65-115); Lactate Dehydrogenase 199 U/L (135-225); Osmolality Calculated 300 mOsm/kg (285-295); Potassium 4.3 mmol/L (3.5-5.1); Sodium 144 mmol/L (136-145); Testosterone Total 2.5 ng/dL (193-740); Total Bilirubin 0.7 mg/dL (0.15-1.2); Total Protein 6.1 g/dL (6.6-8.7)
[2024-09-09 17:46] LABS: Vitamin B12 238 pg/mL (232-1245)
[2024-09-10] MEDS: denosumab 120 mg SDV SUBCUT (08:19)
[2024-09-10 08:21] VITALS: BP 133/68; PULSE 55; RESP 16; TEMP 36.4; O2SAT 97
[2024-09-13 02:14] LABS: Methylmalonic Acid 173 nmol/L (85-423)
== END 2024-09-27 23:59 | disposition home or self-care (01) ==
PROVIDERS: Nurse Practitioner; PCP Nurse Practitioner Family; Visit Provider Internal Medicine Hematology & Oncology
DX: Z53.9 Procedure and treatment not carried out, unspecified reason; Z51.11 Encounter for antineoplastic chemotherapy; C79.51 Secondary malignant neoplasm of bone; C61 Malignant neoplasm of prostate; Z79.899 Other long term (current) drug therapy
CPT/HCPCS: 36415; 80053; 82607; 83615; 83921; 84153; 84403; 85025; 96372; 99214; J0897

== ENCOUNTER 2024-10-08 10:39 | Oncology outpatient (recurring) (ONCR) | payer MEDICARE, OTHER, SELFPAY ==
[2024-10-08 11:03] LABS: Basophils # 0.1 10^3/uL (0.0-0.1); Eosinophils # 0.3 10^3/uL (0.0-0.8); Eosinophils % 5.2 %; Hematocrit 38.8 % (37-53); Lymphocytes % 21.5 %; Mean Corpuscular Hemoglobin 32.2 pg (27-33); Mean Corpuscular Volume 97.5 fl (82-101); Mean Platelet Volume 9.6 fL (7.4-10.4); Monocytes # 0.9 10^3/uL (0.2-0.9); Monocytes % 17.6 %; Neutrophils # 2.62 10^3/uL (1.8-7.7); Neutrophils % 54.1 %; Nucleated Red Blood Cells % 0 %; Platelet Count 187 10^3/cmm (157-399); Red Blood Count 3.98 10^6/uL (3.85-5.65); Red Cell Distribution Width 14.4 % (12.1-15.1); White Blood Count 4.84 10^3/uL (3.29-11.43)
[2024-10-08 11:41] LABS: 25 Hydroxy Vitamin D 15 ng/mL (30-100); Alanine Aminotransferase 208 U/L (0-41); Alkaline Phosphatase 440 U/L (40-130); Anion Gap 12.2 (5-19); Aspartate Amino Transferase 144 U/L (0-40); Blood Urea Nitrogen 17 mg/dL (8-23); Calcium 7.7 mg/dL (8.5-10.5); Carbon Dioxide 23 mmol/L (22-29); Chloride 107 mmol/L (98-107); Creatinine Clr Calc Pharmacy 57.0116; Globulin 2.6 g/dL (1.3-4.6); Glucose 86 mg/dL (65-115); Lactate Dehydrogenase 249 U/L (135-225); Osmolality Calculated 287 mOsm/kg (285-295); Potassium 4.2 mmol/L (3.5-5.1); Sodium 138 mmol/L (136-145); Total Bilirubin 1.7 mg/dL (0.15-1.2); Total Protein 6.6 g/dL (6.6-8.7)
[2024-10-08 15:29] LABS: Testosterone Total 2.5 ng/dL (193-740)
== END 2024-10-28 23:59 | disposition home or self-care (01) ==
LOC: ONCMED 10:40
PROVIDERS: Nurse Practitioner; PCP Nurse Practitioner Family; Visit Provider Internal Medicine Hematology & Oncology
DX: C79.51 Secondary malignant neoplasm of bone; C61 Malignant neoplasm of prostate; Z79.899 Other long term (current) drug therapy; Z87.891 Personal history of nicotine dependence; Z79.818 Long term (current) use of other agents affecting estrogen receptors and estrogen levels; E83.51 Hypocalcemia; E53.8 Deficiency of other specified B group vitamins; M53.83 Other specified dorsopathies, cervicothoracic region
CPT/HCPCS: 36415; 80053; 82306; 83615; 84153; 84403; 85025; 99214

== ENCOUNTER 2024-10-09 12:29 | Outpatient (CLI) | payer MEDICARE, OTHER, SELFPAY ==
--- NOTE | 2024-10-09 13:00 | CT_ITS ---
WS: [id number] CT ABDOMEN AND PELVIS WITH AND WITHOUT CONTRAST HISTORY: elevated lfts, history of prostate cancer. TECHNIQUE: Unenhanced 5 mm axial imaging first performed through the abdomen. Post contrast imaging t hrough the abdomen and pelvis. Oral contrast has not been provided. Sagittal and coronal reformats a re submitted. All CT scans at [facility] use at least one of these dose optimization techniqu es: automated exposure control; mA and/or kV adjustment per patient size (includes targeted exams whe re dose is matched to clinical indication); or iterative reconstruction. CONTRAST: Omnipaque 350; 95 mL IV. DLP: 1297.73 mGy.cm COMPARISON: CT pelvis 05/12/2024 Lung bases are clear. Heart size is normal. Normal size liver. Scattered low-attenuation masses consistent with cysts in the liver. Largest cyst in the superior RIGHT lobe measures 2.7 x 1.2 cm. Normal portal vein. Normal spleen. Gallbladder is s lightly contracted. Gallbladder wall is mildly enhancing but no adjacent inflammation. No bile duct d ilatation. Mild pancreatic atrophy. Normal adrenal glands. No renal obstruction. Cortical cyst mid RI GHT kidney 8 mm. Normal aorta. Mesenteric arteries are well enhancing. No GI tract obstruction. No colitis. There are few diverticula without acute inflammation. No adenopa thy or ascites. Small ventral abdominal wall hernia. Well distended urinary bladder. Mild prostate gland enlargement. 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 Metastatic osteoblastic changes hav e progressed since 05/12/2024. CT/CT abdomen pelvis wo/w [id number] IMPRESSION: 1. No intrahepatic bile duct dilatation. 2. Several small hepatic cysts. 3. No metastatic lesions in the liver. 4. Gallbladder is contracted with mild gallbladder wall enhancement. No adjace nt inflammation. 5. No ascites or adenopathy. 6. 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 Dis ease has progressed within the visualized spine and pelvis since 05/12/2024.
[2024-10-09] MEDS: iohexol 350 mg/mL 500 mL Btl (per mL) IV (13:42)
== END 2024-10-09 12:30 | disposition home or self-care (01) ==
LOC: RAD 12:30
PROVIDERS: PCP Nurse Practitioner Family; Visit Provider Nurse Practitioner
DX: C61 Malignant neoplasm of prostate (principal); C79.51 Secondary malignant neoplasm of bone; R74.01 Elevation of levels of liver transaminase levels; Q44.6 Cystic disease of liver; K82.0 Obstruction of gallbladder; N28.1 Cyst of kidney, acquired; K42.9 Umbilical hernia without obstruction or gangrene
CPT/HCPCS: 74178

== ENCOUNTER 2024-11-18 08:39 | Oncology outpatient (recurring) (ONCR) | payer MEDICARE, OTHER, SELFPAY ==
[2024-11-18 09:39] LABS: Basophils # 0.1 10^3/uL (0.0-0.1); Eosinophils # 0.3 10^3/uL (0.0-0.8); Eosinophils % 6.2 %; Hematocrit 36.7 % (37-53); Lymphocytes # 0.9 10^3/uL (0.8-4.8); Lymphocytes % 17.7 %; Mean Corpuscular HGB Conc 33.5 g/dL (30-55); Mean Corpuscular Hemoglobin 31.7 pg (27-33); Mean Corpuscular Volume 94.6 fl (82-101); Mean Platelet Volume 10.2 fL (7.4-10.4); Monocytes # 0.6 10^3/uL (0.2-0.9); Monocytes % 12.6 %; Neutrophils # 2.86 10^3/uL (1.8-7.7); Nucleated Red Blood Cells % 0 %; Platelet Count 143 10^3/cmm (157-399); Red Blood Count 3.88 10^6/uL (3.85-5.65); Red Cell Distribution Width 15.1 % (12.1-15.1); White Blood Count 4.85 10^3/uL (3.29-11.43)
[2024-11-18 09:54] LABS: Alanine Aminotransferase 290 U/L (0-41); Albumin Level 3.8 g/dL (3.5-5.2); Alkaline Phosphatase 830 U/L (40-130); Aspartate Amino Transferase 275 U/L (0-40); Blood Urea Nitrogen 14 mg/dL (8-23); Calcium 8.3 mg/dL (8.5-10.5); Carbon Dioxide 23 mmol/L (22-29); Chloride 108 mmol/L (98-107); Globulin 2.3 g/dL (1.3-4.6); Glucose 109 mg/dL (65-115); Lactate Dehydrogenase 427 U/L (135-225); Lipase 38 U/L (13-60); Magnesium 1.8 mg/dL (1.7-2.3); Osmolality Calculated 291 mOsm/kg (285-295); Phosphorus 2.1 mg/dL (2.5-4.5); Sodium 140 mmol/L (136-145); Total Bilirubin 1.8 mg/dL (0.15-1.2); Total Protein 6.1 g/dL (6.6-8.7)
== END 2024-11-28 23:59 | disposition home or self-care (01) ==
PROVIDERS: Nurse Practitioner; PCP Nurse Practitioner Family; Visit Provider Internal Medicine Hematology & Oncology
DX: C61 Malignant neoplasm of prostate (principal); C79.51 Secondary malignant neoplasm of bone; R74.01 Elevation of levels of liver transaminase levels; Z87.891 Personal history of nicotine dependence; Z79.899 Other long term (current) drug therapy
CPT/HCPCS: 36415; 80053; 83615; 83690; 83735; 84100; 85025; 99214

== ENCOUNTER 2024-12-04 15:05 | Emergency (ER) | payer MEDICARE, OTHER, SELFPAY ==
[2024-12-04 15:24] VITALS: BP 138/80; PULSE 61; RESP 18; TEMP 36.6; O2SAT 98; BMI 23.7
--- NOTE | 2024-12-04 18:42 | W.ED.BACK ---
HPI - Back Pain/Injury General: Chief Complaint: Back Pain/Injury Stated Complaint: prostate pain Time Seen by Provider: 12/04/24 15:23 History of Present Illness: Patient brought in for worsening low back pain. Patient takes hydrocodone normally that usually works but today is not been working. Patient rates his pain 8 out of 10. He is has noted no recent injury. 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 Patient says that we get his pain under control and he can just make it till Sunday he can follow-up with his doctor. Related Data Home Medications ?Medication ?Instructions ?Recorded ?Confirmed bisacodyl 5 mg tablet,delayed 5 mg PO DAILY 06/23/24 11/18/24 release (Dulcolax (bisacodyl)) relugolix 120 mg tablet 120 mg PO DAILY 08/12/24 11/18/24 darolutamide 300 mg tablet (Nubeqa) 300 mg PO BID 09/09/24 11/18/24 Held on 11/18/24. Instructions: Doctor's Order Previous Rx's ?Medication ?Instructions ?Recorded CO-Poly Custom insoles #1 ea 04/26/23 hydrocodone 5 mg-acetaminophen 325 1 tab PO .4-6 PRN pain #20 tabs 05/12/24 mg tablet oxycodone-acetaminophen 5 mg-325 1 tab PO Q6H PRN pain #20 tabs 12/04/24 mg tablet (Percocet) Allergies Allergy/AdvReac Type Severity Reaction Status Date / Time No Known Allergies Allergy Verified 12/04/24 15:27 Review of Systems General: Reports: 10 or more systems reviewed and unremarkable except in HPI and below PFSH ED PFSH: Medical History Pain of right sacroiliac joint Sciatica, right side Fatigue History of nonmelanoma skin cancer Surgical History S/P right rotator cuff repair Social History Smoking and tobacco/nicotine status: former use of tobacco/nicotine Quit status (tobacco/nicotine): has quit using Year quit tobacco: early to mid 1960s Former quit date comment: 5 years total tobacco use Physical Exam Const: COMMON NORMALS: no acute distress, average body habitus, patient oriented x3, no limitations, healthy appearing, alert and well nourished HENMT: COMMON NORMALS: normocephalic, atraumatic, hearing grossly normal bilaterally, external ears normal and Normal external nose present HEAD & SCALP: normocephalic and atraumatic NOSE: Normal external nose present EXTERNAL EAR: Yes external ears normal Neck/C-Spine: COMMON NORMALS: no JVD Chest: COMMONS NORMALS: normal inspection of the chest and normal palpation of entire chest wall Resp: COMMON NORMALS: normal respiratory effort, No retractions, No use of accessory muscles and clear to auscultation bilaterally AUSCULTATION: clear to auscultation bilaterally Cardio: COMMON NORMALS: no JVD, regular rate, regular rhythm, S1 normal heart sound present, S2 normal heart sound present, No gallops present (Cardio), No clicks present (Cardio), No murmurs present (Cardio) and No rub (Cardio) RATE: regular rate RHYTHM: regular rhythm HEART SOUNDS: S1 normal heart sound present and S2 normal heart sound present GI: COMMON NORMALS: Normal to inspection, nondistended, normoactive bowel sounds present, Soft to palpation, non-tender, No hepatosplenomegaly present and no masses PALPATION: Yes Soft to palpation and Yes No hepatosplenomegaly present Neuro: COMMON NORMALS: patient oriented x3 SENSORIUM/ORIENTATION: Yes alert Course Vital Signs: Vital signs: Vital Signs Temperature 97.9 F 12/04/24 15:24 Pulse Rate 61 12/04/24 19:07 Respiratory Rate 17 12/04/24 19:02 Blood Pressure 160/77 12/04/24 19:07 Pulse Oximetry 97 12/04/24 19:07 Oxygen Delivery Me thod Room Air 12/04/24 19:07 MDM - Back Pain/Injury Medical Decision Making Patient is given a Percocet 5 and Toradol 60 IM. This decrease patient's pain down to about a 4. Patient be discharged home on Percocet. Medical Records I reviewed the patient's medical records. Labs I reviewed the patient's lab results. All radiology interpretation(s) finalized by discharge Discharge Plan Discharge Patient Disposition: Home Clinical Impression: Lumbar radiculopathy Condition: Stable Prescriptions: New oxycodone-acetaminophen [Percocet] 5-325 mg tablet 1 tab PO Q6H PRN (Reason: pain) Qty: 20 0RF No Action bisacodyl [Dulcolax (bisacodyl)] 5 mg tablet,delayed release (DR/EC) 5 mg PO DAILY (DME) CO-Poly Custom insoles See Rx Instructions .Route .MEDSUPPLY Qty: 1 0RF Rx Instructions: As directed by [facility]re[facility] relugolix 120 mg tablet 120 mg PO DAILY Nubeqa 300 mg tablet 300 mg PO BID Patient Comments: two tablets in the morning, two tablets in the evening hydrocodone-acetaminophen 5-325 mg tablet 1 tab PO .4-6 PRN (Reason: pain) Qty: 20 0RF Discharge Orders: Discharge ED (Routine); Ordered 12/04/24 Ordered By: Hi Charles Referrals: Lisa Martinez FNP [Primary Care Provider] - 1 week Patient Instructions: Opioid Safety, Pain Management Activity Restrictions/Additional Instructions: You have been prescribed Percocet from the ER. It prescriptions been sent to your pharmacy. Please take it in place of the hydrocodone as it may help your pain more. Please keep your appointment with your doctor on Sunday for further evaluation treatment. 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
[2024-12-04] MEDS: ketorolac 60 mg/2 mL INJ IM (19:01)
[2024-12-04 19:02] VITALS: RESP 17
[2024-12-04] MEDS: oxyCODONE-APAP 5-325 mg Tablet 1 TAB PO (19:02)
[2024-12-04 19:07] VITALS: BP 160/77; PULSE 61; O2SAT 97
[2024-12-04 20:33] VITALS: BP 127/67; PULSE 64; O2SAT 95
== END 2024-12-04 20:34 | disposition home or self-care (01) ==
PROVIDERS: Emergency Provider Emergency Medicine; PCP Nurse Practitioner Family
DX: M54.16 Radiculopathy, lumbar region (principal); Z87.891 Personal history of nicotine dependence
CPT/HCPCS: 96372; 99284; J1885

== ENCOUNTER → 2024-12-06 15:22 | Outpatient (BNVA) | payer MEDICARE, OTHER, SELFPAY | PROVIDERS: PCP Nurse Practitioner Family | DX: R39.9 Unspecified symptoms and signs involving the genitourinary system (principal) | CPT/HCPCS: 81000 ==

== ENCOUNTER 2025-02-27 12:58 | Emergency (ER) | payer MEDICARE, OTHER, SELFPAY ==
[2025-02-27] VITALS (8 sets, daily range): BP systolic 90–105; BP diastolic 43–55; PULSE 79–105; RESP 17–22; TEMP 36.6–36.8; O2SAT 98–99
[2025-02-27 13:20] LABS: Hematocrit 21.1 % (37-53); Mean Corpuscular HGB Conc 31.8 g/dL (30-55); Mean Corpuscular Hemoglobin 32.4 pg (27-33); Mean Corpuscular Volume 101.9 fl (82-101); Mean Platelet Volume 10.5 fL (7.4-10.4); Platelet Count 60 10^3/cmm (157-399); Red Blood Count 2.07 10^6/uL (3.85-5.65)
[2025-02-27 13:37] LABS: Alanine Aminotransferase 6 U/L (0-41); Albumin Level 3.8 g/dL (3.5-5.2); Alkaline Phosphatase 655 U/L (40-130); Anion Gap 15.1 (5-19); Aspartate Amino Transferase 33 U/L (0-40); Blood Urea Nitrogen 15 mg/dL (8-23); Calcium 6.9 mg/dL (8.5-10.5); Carbon Dioxide 24 mmol/L (22-29); Chloride 98 mmol/L (98-107); Creatinine Clr Calc Pharmacy 58.6712; Globulin 2.4 g/dL (1.3-4.6); Glucose 119 mg/dL (65-115); Osmolality Calculated 280 mOsm/kg (285-295); Potassium 3.1 mmol/L (3.5-5.1); Sodium 134 mmol/L (136-145); Total Bilirubin 2.7 mg/dL (0.15-1.2); Total Protein 6.2 g/dL (6.6-8.7)
[2025-02-27 13:48] LABS: Slide Review Slide Review Perform
[2025-02-27 13:49] LABS: Absolute Segmented Neutrophil 2.8 10/cmm (1.6-7.1); Band Neutrophils Absolute 0.3 10^3/cmm (0.0-1.2); Lymphocytes 10 %; Monocytes Absolute 0.3 10^3/cmm (0.1-0.6); Segmented Neutrophils 69 %; Total Cells Counted 100 (0-100)
[2025-02-27 13:50] LABS: Absolute Eosinophils 0.1 10^3/cmm (0.0-0.7); Absolute Neutrophil 3.1 10^3/cmm (1.4-6.5); Anisocytosis 1+; Eosinophils 2 %; Giant Platelets Trace; Lymphocytes Absolute 0.5 10^3/cmm (1.2-3.4); Platelet Estimate Decreased (Normal); Polychromasia Trace
--- NOTE | 2025-02-27 14:03 | W.ED.RECABL ---
HPI - Recheck/Abnormal Lab/Rx General: Chief Complaint: Recheck/Abnormal Lab/Rx Stated Complaint: abn labs Time Seen by Provider: 02/27/25 13:03 Source: patient Mode of arrival: ambulatory Limitations: no limitations History of Present Illness: 89-year-old male history of prostate cancer has a history of anemia in the past. Oncologist to try to set him up to get an outpatient transfusion but he was unable to get it set up has been having some weakness he denies any blood in his stool. He has had transfusion in the past Related Data Home Medications ?Medication ?Instructions ?Recorded ?Confirmed bisacodyl 5 mg tablet,delayed 5 mg PO DAILY 06/23/24 02/27/25 release (Dulcolax (bisacodyl)) relugolix 120 mg tablet 120 mg PO DAILY 08/12/24 02/27/25 enzalutamide 80 mg tablet (Xtandi) 80 mg PO BID 02/27/25 02/27/25 fentanyl 25 mcg/hr transdermal See Rx Instructions .Route .COMPLEX 02/27/25 02/27/25 patch nitrofurantoin 100 mg PO BID 02/27/25 02/27/25 monohydrate/macrocrystals 100 mg capsule oxycodone 10 mg tablet 10 - 15 mg PO Q6H PRN Pain 02/27/25 02/27/25 talazoparib 0.5 mg capsule 0.5 mg PO DAILY 02/27/25 02/27/25 (Talzenna) Previous Rx's ?Medication ?Instructions ?Recorded CO-Poly Custom insoles #1 ea 04/26/23 Allergies Allergy/AdvReac Type Severity Reaction Status Date / Time No Known Allergies Allergy Verified 02/27/25 13:05 Review of Systems Const: Reports: fatigue; Denies: fever(s) or chills Eyes: Denies: blurry vision or eye discomfort ENMT: Denies: throat pain or dental pain Card: Denies: chest pain Resp: Denies: dyspnea GI: Denies: abdominal pain, nausea, vomiting or diarrhea Musc: Denies: neck pain or back pain Skin/Breast: Denies: rash Neuro: Denies: headache(s) PFS ED PFSH: Medical History Pain of right sacroiliac joint Sciatica, right side Fatigue History of nonmelanoma skin cancer Surgical History S/P right rotator cuff repair Social History Smoking and tobacco/nicotine status: never used tobacco/nicotine Quit status (tobacco/nicotine): has quit using Year quit tobacco: early to mid 1960s Former quit date comment: 5 years total tobacco use Physical Exam Const: COMMON NORMALS: no acute distress, patient oriented x3 and healthy appearing HENMT: COMMON NORMALS: normocephalic and atraumatic HEAD & SCALP: normocephalic and atraumatic Eye: COMMON NORMALS: conjunctivae normal CONJUNCTIVA: Yes conjunctivae normal Neck/C-Spine: COMMON NORMALS: full ROM and supple Chest: COMMONS NORMALS: normal inspection of the chest Resp: COMMON NORMALS: normal respiratory effort, No retractions, No use of accessory muscles and clear to auscultation bilaterally AUSCULTATION: clear to auscultation bilaterally Cardio: COMMON NORMALS: regular rate, regular rhythm and No murmurs present (Cardio) RATE: regular rate RHYTHM: regular rhythm Extremity: COMMON NORMALS: normal to inspection and full ROM Neuro: COMMON NORMALS: patient oriented x3, moves all extremities and no focal motor deficits Psych: COMMON NORMALS: mental status grossly normal, Normal thought process present and cooperative THOUGHT PROCESS: Normal thought process present Skin: COMMON NORMALS: no rashes or lesions noted and no wounds GENERAL SKIN EXAM: no rashes or lesions noted Course Vital Signs: Vital signs: Vital Signs Temperature 97.8 F 02/27/25 16:10 Pulse Rate 98 02/27/25 16:26 Respiratory Rate 22 H 02/27/25 16:26 Blood Pressure 95/49 02/27/25 16:26 Pulse Oximetry 98 02/27/25 16:26 Oxygen Delivery Me thod Room Air 02/27/25 14:46 MDM - Recheck/Abnormal Lab/Rx Medical Decision Making Patient presents here with anemia we will transfuse 1 unit he is well-appearing here otherwise he is stable for discharge he is to follow-up with PCP or oncology return if worsening. Medical Records I reviewed the patient's medical records. Lab Data I reviewed the patient's lab results. 02/27/25 13:14 02/27/25 13:14 Laboratory Results WBC 4.10 10^3/uL (3.29-11.43) 02/27/25 13:14 RBC 2.07 10^6/uL (3.85-5.65) L 02/27/25 13:14 Hgb 6.70 g/dL (11.27-16.99) L 02/27/25 13:14 Hct 21.1 % (37-53) L 02/27/25 13:14 MCV 101.9 fl (82-101) H 02/27/25 13:14 MCH 32.4 pg (27-33) 02/27/25 13:14 MCHC 31.8 g/dL (30-55) 02/27/25 13:14 RDW 20.0 % (12.1-15.1) H 02/27/25 13:14 Plt Count 60 10^3/cmm (157-399) L 02/27/25 13:14 MPV 10.5 fL (7.4-10.4) H 02/27/25 13:14 Lymph % (Auto) Not Reportable 02/27/25 13:14 [place] % (Auto) Not Reportable 02/27/25 13:14 Lymph # (Auto) Not Reportable 02/27/25 13:14 [place] # (Auto) Not Reportable 02/27/25 13:14 Total Counted 100 (0-100) 02/27/25 13:14 Atypical Lymphs % 2.0 % (0-5) 02/27/25 13:14 Absolute Neutrophils 3.1 10^3/cmm (1.4-6.5) 02/27/25 13:14 Segmented Neutrophils 69 % 02/27/25 13:14 Band Neutrophils 7.0 % 02/27/25 13:14 Absolute Lymphocytes 0.5 10^3/cmm (1.2-3.4) L 02/27/25 13:14 Lymphocytes (Manual) 10 % 02/27/25 13:14 Monocytes (Manual) 7.0 % 02/27/25 13:14 Absolute Monocytes 0.3 10^3/cmm (0.1-0.6) 02/27/25 13:14 Eosinophils (Manual) 2 % 02/27/25 13:14 Absolute Eosinophils 0.1 10^3/cmm (0.0-0.7) 02/27/25 13:14 Basophils (Manual) 0.0 % 02/27/25 13:14 Absolute Basophils 0.0 10^3/cmm (0.0-0.2) 02/27/25 13:14 Metamyelocytes 1.0 % 02/27/25 13:14 Myelocytes 2.0 % 02/27/25 13:14 Nucleated RBCs 3.0 /100WBC (0-1) H 02/27/25 13:14 Platelet Estimate Decreased (Normal) 02/27/25 13:14 Giant Platelets Trace 02/27/25 13:14 Polychromasia Trace 02/27/25 13:14 Anisocytosis 1+ H 02/27/25 13:14 Sodium 134 mmol/L (136-145) L 02/27/25 13:14 Potassium 3.1 mmol/L (3.5-5.1) L 02/27/25 13:14 Chloride 98 mmol/L (98-107) 02/27/25 13:14 Carbon Dioxide 24 mmol/L (22-29) 02/27/25 13:14 Anion Gap 15.1 (5-19) 02/27/25 13:14 BUN 15 mg/dL (8-23) 02/27/25 13:14 Creatinine 0.5 mg/dL (0.7-1.2) L 02/27/25 13:14 GFR Calculation Not Reportable 02/27/25 13:14 Glucose 119 mg/dL (65-115) H 02/27/25 13:14 Calculated Osmolality 280 mOsm/kg (285-295) L 02/27/25 13:14 Calcium 6.9 mg/dL (8.5-10.5) L 02/27/25 13:14 Total Bilirubin 2.7 mg/dL (0.15-1.2) H 02/27/25 13:14 AST 33 U/L (0-40) 02/27/25 13:14 ALT 6 U/L (0-41) 02/27/25 13:14 Alkaline Phosphatase 655 U/L (40-130) H 02/27/25 13:14 Total Protein 6.2 g/dL (6.6-8.7) L 02/27/25 13:14 Albumin 3.8 g/dL (3.5-5.2) 02/27/25 13:14 Globulin 2.4 g/dL (1.3-4.6) 02/27/25 13:14 Blood Type O Positive 02/27/25 13:14 Rho(D) Type Rh positive 02/27/25 13:14 Antibody Screen Negative 02/27/25 13:14 Crossmatch See Detail 02/27/25 13:14 No radiology studies performed this visit Discharge Plan Discharge Patient Disposition: Home Clinical Impression: Anemia Condition: Stable Prescriptions: No Action bisacodyl [Dulcolax (bisacodyl)] 5 mg tablet,delayed release (DR/EC) 5 mg PO DAILY (DME) CO-Poly Custom insoles See Rx Instructions .Route .MEDSUPPLY Qty: 1 0RF Rx Instructions: As directed by [facility] relugolix 120 mg tablet 120 mg PO DAILY fentanyl 25 mcg/hr patch 72 hour See Rx Instructions .ROUTE .COMPLEX Rx Instructions: APPLY 1 PATCH TOPICALLY TO THE SKIN EVERY 72 HOURS. REMOVE OLD PATCH BEFORE APPLYING NEW PATCH. 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
--- NOTE | 2025-02-27 14:19 | PC.NURSE ---
informed consent for blood products signed and in pt chart
--- NOTE | 2025-02-27 14:47 | PC.NURSE ---
discharge delayed d/t blood infusion starting @1440
--- NOTE | 2025-02-27 15:01 | PC.PHAR ---
Pt has had several changes to pain meds and chemo meds. Family is really informed as to what pt takes and does not take anymore. Pt has several pharmacies as well, due to specialty drugs. They are added in pharmacy notes with last fill dates and day supply.
== END 2025-02-27 16:34 | disposition home or self-care (01) ==
PROVIDERS: Physician Assistant; Emergency Provider Emergency Medicine; PCP Nurse Practitioner Family
DX: D64.9 Anemia, unspecified (principal); Z85.46 Personal history of malignant neoplasm of prostate; Z87.891 Personal history of nicotine dependence
CPT/HCPCS: 36430; 80053; 85007; 85025; 86850; 86900; 86920; 99284; P9016

== ENCOUNTER 2025-03-02 07:53 | Oncology outpatient (recurring) (ONCR) | payer MEDICARE, OTHER, SELFPAY ==
[2025-03-02 08:18] LABS: Hematocrit 22.5 % (37-53)
[2025-03-02 10:47] VITALS: BP 96/62; PULSE 102; RESP 16; TEMP 36.7; O2SAT 98
[2025-03-02 11:02] VITALS: BP 95/58; PULSE 78; RESP 16; TEMP 37; O2SAT 97
[2025-03-02 11:17] VITALS: BP 103/58; PULSE 93; RESP 16; TEMP 36.7; O2SAT 98
[2025-03-02 11:48] VITALS: BP 101/63; PULSE 80; RESP 16; TEMP 37; O2SAT 99
[2025-03-02 12:41] VITALS: BP 106/62; PULSE 82; RESP 16; TEMP 37; O2SAT 96
[2025-03-02 12:56] VITALS: BP 106/62; PULSE 82; RESP 16; TEMP 37; O2SAT 96
== END 2025-03-28 23:59 | disposition home or self-care (01) ==
PROVIDERS: PCP Nurse Practitioner Family; Visit Provider Internal Medicine Hematology & Oncology
DX: D64.9 Anemia, unspecified (principal); Z79.899 Other long term (current) drug therapy
CPT/HCPCS: 36430; 85014; 85018; 86850; 86900; 86920; P9016

== ENCOUNTER 2025-04-09 09:19 | Oncology outpatient (recurring) (ONCR) | payer MEDICARE, OTHER, SELFPAY ==
[2025-04-09] VITALS (7 sets, daily range): BP systolic 91–97; BP diastolic 51–58; PULSE 64–78; RESP 16–17; TEMP 36.8–37.1; O2SAT 97–99
[2025-04-09 11:21] LABS: Alanine Aminotransferase 11 U/L (0-41); Albumin Level 3.2 g/dL (3.5-5.2); Alkaline Phosphatase 314 U/L (40-130); Anion Gap 14.9 (5-19); Aspartate Amino Transferase 11 U/L (0-40); Blood Urea Nitrogen 17 mg/dL (8-23); Calcium 6.9 mg/dL (8.5-10.5); Carbon Dioxide 22 mmol/L (22-29); Chloride 106 mmol/L (98-107); Globulin 1.9 g/dL (1.3-4.6); Glucose 90 mg/dL (65-115); Osmolality Calculated 289 mOsm/kg (285-295); Potassium 3.9 mmol/L (3.5-5.1); Sodium 139 mmol/L (136-145); Total Bilirubin 1.1 mg/dL (0.15-1.2); Total Protein 5.1 g/dL (6.6-8.7)
[2025-04-09 11:22] LABS: Basophils % 0.6 %; Eosinophils % 2.3 %; Lymphocytes # 0.6 10^3/uL (0.8-4.8); Lymphocytes % 33.9 %; Mean Corpuscular Hemoglobin 33.2 pg (27-33); Mean Corpuscular Volume 100.5 fl (82-101); Mean Platelet Volume 10.9 fL (7.4-10.4); Monocytes # 0.1 10^3/uL (0.2-0.9); Monocytes % 5.2 %; Neutrophils % 57.4 %; Nucleated Red Blood Cells % 0 %; Platelet Count 156 10^3/cmm (157-399); Red Blood Count 1.84 10^6/uL (3.85-5.65); Red Cell Distribution Width 18.9 % (12.1-15.1); White Blood Count 1.74 10^3/uL (3.29-11.43)
[2025-04-09 11:31] LABS: Hematocrit 18.5 % (37-53)
[2025-04-09] MEDS: sodium chloride 0.9% 250 mL Bag IV (13:20)
== END 2025-04-27 23:59 | disposition home or self-care (01) ==
PROVIDERS: Internal Medicine Medical Oncology; PCP Nurse Practitioner Family; Visit Provider Internal Medicine Hematology & Oncology
DX: R71.0 Precipitous drop in hematocrit (principal); Z79.899 Other long term (current) drug therapy; C79.51 Secondary malignant neoplasm of bone; C61 Malignant neoplasm of prostate; Z85.828 Personal history of other malignant neoplasm of skin
CPT/HCPCS: 36430; 80053; 85025; 86850; 86900; 86920; J7050; P9016

== ENCOUNTER 2025-07-12 10:08 | Emergency (ER) | payer MEDICARE, OTHER, SELFPAY ==
--- OUTSIDE RECORDS SUMMARY | 2025-01-26 08:00 | XMS_ITS ---
Author Organization [facility] Address [address] [place] [address] Care Team Providers Care Hooker Machine Tender Name Role Phone Lisa Martinez APRN Primary Care Provider UnavailTAM Del Valle Unavailable [phone] JHONNY PULIDO Unavailable [phone] REASON FOR VISIT IOD Orgovyx Nubeqa Encounters Encounter Location Date Provider Diagnosis [facility] [address] [place] [place] [address] 01/26/2025 JHONNY PULIDO Plan Of Treatment No Information Progress Notes * Bernardo EDWARDS DDOB:1935 (89 yo M)Acc No.[id number]:01/26/2025 Progress Note Patient: Pushpa REYNOSO Bernardo Wells Provider: Balbina PULIDO MD :1935 A ge:89 Y S ex:Male Date:01/26/2025 Address:[address] [place], [place] [id number] Pcp:Lisa Martinez APRN Subjective: * Chief Complaints: * 1 . IOD Orgovyx Nubeqa. * Medical History: Objective: * Vitals: Assessment: Plan: * Treatment: * Billing Information: * Visit Code: * Procedure Codes: * Electronic signature of AUST IN MD ASHOK on 07/12/2025 at 10:12 AM CDT Sign off status: Pending * Provider: Balbina PULIDO MD Date: 0 01/26/2025 Generated for Bozena jacob/Spencer/eTransmitting on: 07/12/2025 10:12 AM CDT
--- OUTSIDE RECORDS SUMMARY | 2025-06-15 10:55 | XMS_ITS ---
Author Organization [facility] Address [address] [place] [address] Care Team Providers Care Sonogram Technician Name Role Phone Lisa Martinez APRN Primary Care Provider UnavailTAM Del Valle Unavailable [phone] JHONNY PULIDO Unavailable [phone] REASON FOR VISIT 3 mo w/ ua/psa Encounters Encounter Location Date Provider Diagnosis [facility] [address] [place] [address] 06/15/2025 JHONNY PULIDO Prostate cancer C61 ; Bone lesion M89.9 ; Increased urinary frequency R35.0 and Complicated UTI (urinary tract infection) N39.0 Assessments Encounter Date Diagnosis (ICD Code) Assessment Notes Treatment Notes Treatment Clinical Notes Section Notes 06/15/2025 Prostate cancer (ICD-10 - C61) 89-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 BRCA2 mutation positive status impacts prognosis and treatment options. 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 BRCA2 mutation positive status impacts prognosis and treatment options. 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 BRCA2 mutation positive status impacts prognosis and treatment options. 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 BRCA2 mutation positive status impacts prognosis and treatment options. Plan Of Treatment No Information Progress Notes * Bernardo EDWARDS DDOB:1935 (89 yo M)Acc No.[id number]:06/15/2025 Progress Notes Patient: Bernardo MERCEDES Provider: Alcides PULIDO MD :1935 A ge:89 Y S ex:Male Date:06/15/2025 Address:[address] [place], [place] [id number] Pcp:Lisa Martinez APRN Subjective: * Chief Complaints: * 1 . 3 mo w/ ua/psa. * HPI: M igrated HPI: Mr. Edwards is an 89 year old male patient, referred by Lisa Martinez APRN for elevated PSA. He was seen by PCP on 05/07/24 with c/o low back pain and increased urinary frequency. PSA returned elevated at 12.1. Patient reports onset of weak stream, frequency and nocturia about 2 months ago. His back pain got more severe, so he went to the ER at [facility] on 05/12/[address] Patient states he was told that he prostate cancer that has spread to his back. Denies any family history of malignancy. Patient and his daughter requested referral to [facility] for further treatment of metastatic disease. Pt elected to proceed with TRUS biopsy. Underwent TRUS prostate needle biopsy on 06/17/24. Pathology resulted in multiple cores positive for [place] 5+4 =9, Jenny 4+5=9, and [place] 4+3 =7, throughout entire prostate, stage T2c CaP. Continue Bicalutamide until pt receives Orgovyx. Start Nubeqa with Samples given. Referral sent to [facility] for Xgeva injections. PSA of 1.13 on 07/31/24. Pt states he hasn't started Orgovyx yet. He had a PET scan obtained at [facility] recently. He received Xgeva injection at [facility] oncology. PSA of 11.03 on 1/30/25. PET obtained on 07/07/24 resulting in findings consistent with wide spread osseous metastatic disease throughout the included axial and appendicular skeleton as well as extensive britton disease within the chest, abdomen, and pelvis. Focal abnormal prostate uptake is keeping with known carcinoma. There is likely involvement of at the least the left seminal vesicle. Notes groin pain radiating down to his feet along with back pain. He states his Oncologist at [facility] is not giving him Xgeva anymore. He recently went to urgent care for fever and was diagnosed with a UTI. He is currently on oral abx. PVR 0. Referral sent today to [facility] to restart Xgeva. He will continue Orgovyx and Nubeqa. For his chronic pain, will send Rx Percocet until he can establish with [facility]. Ingrid gerard was previously on Orgovyx and Nubeqa but has recently been switched by Dr. Ross to Xtandi and Talzenna. Patient continues on Orgovyx for ongoing testosterone suppression. Xgeva (denosumab) was reinitiated last month for bone health. Here today for 3m f/u with UA and PSA 05/19/25 PSA of 0.8 TT of 0.04. * Medical History: Objective: * Vitals: Assessment: * Assessment: 1. P rostate cancer - C61 (Primary) 2 . B one lesion - M89.9 ?3. I ncreased urinary frequency - R35.0 4 . 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 BRCA2 mutation positive status impacts prognosis and treatment options. Plan: * Treatment: * Billing Information: * Visit Code: * Procedure Codes: * Electronic signature of AUST IN MD ASHOK on 07/12/2025 at 10:12 AM CDT Sign off status: Pending * Provider: Alcides PULIDO MD Date: 0 06/15/2025 Generated for Bozena jacob/Spencer/Richardsonitting on: 0 07/12/2025 10:12 AM CDT History and Physical Notes * HPI (History of Present Illness) Category Sub-Category Detail Notes Category Not es Migrated HPI Mr. Edwards is an 89 year old male patient, referred by Lisa Martinez APRN for elevated PSA. He was seen by PCP on 05/07/24 with c/o low back pain and increased urinary frequency. PSA returned elevated at 12.1. Patient reports onset of weak stream, frequency and nocturia about 2 months ago. His back pain got more severe, so he went to the ER at [facility] on 05/12/[address] Patient states he was told that he prostate cancer that has spread to his back. Denies any family history of malignancy. Patient and his daughter requested referral to [facility] for further treatment of metastatic disease. Pt elected to proceed with TRUS biopsy. Underwent TRUS prostate needle biopsy on 06/17/24. Pathology resulted in multiple cores positive for [place] 5+4 =9, Jenny 4+5=9, and [place] 4+3 =7, throughout entire prostate, stage T2c CaP. Continue Bicalutamide until pt receives Orgovyx. Start Nubeqa with Samples given. Referral sent to [facility] for Xgeva injections. PSA of 1.13 on 07/31/24. Pt states he hasn't started Orgovyx yet. He had a PET scan obtained at [facility] recently. He received Xgeva injection at [facility] oncology. PSA of 11.03 on 11/27/24. PET obtained on 07/07/24 resulting in findings consistent with wide spread osseous metastatic disease throughout the included axial and appendicular skeleton as well as extensive britton disease within the chest, abdomen, and pelvis. Focal abnormal prostate uptake is keeping with known carcinoma. There is likely involvement of at the least the left seminal vesicle. Notes groin pain radiating down to his feet along with back pain. He states his Oncologist at [facility] is not giving him Xgeva anymore. He recently went to urgent care for fever and was diagnosed with a UTI. He is currently on oral abx. PVR 0. Referral sent today to [facility] to restart Xgeva. He will continue Orgovyx and Nubeqa. For his chronic pain, will send Rx Percocet until he can establish with [facility]. Patient was previously on Orgovyx and Nubeqa but has recently been switched by Dr. Ross to Xtandi and Talzenna. Patient continues on Orgovyx for ongoing testosterone suppression. Xgeva (denosumab) was reinitiated last month for bone health. Here today for 3m f/u with UA and PSA 05/19/25 PSA of 0.8 TT of 0.04
[2025-07-12] VITALS (14 sets, daily range): BP systolic 95–125; BP diastolic 46–75; PULSE 68–85; RESP 16–17; TEMP 36.7–36.9; O2SAT 96–100; BMI 20.5
--- OUTSIDE RECORDS SUMMARY | 2025-07-12 10:12 | XMS_ITS | Clinical Summary ---
Author Organization [facility] Address [address] [place] [address] Phone Care Team Providers Care It Senior Analyst Name Role Phone Unavailable Primary Care Provider Unavailabl e Allergies No known active allergies Encounters Date Type Department Care Team Description 06/17/2025 External Device Data [facility] ABSTRACTION Provider, Abstract 06/16/2025 External Device Data [facility]CTION Provider, Abstract 06/03/2025 External Device Data [facility] ABSTRACTION Provider, Abstract 06/02/2025 External Device Data [facility]CTION Provider, Abstract 05/13/2025 External Device Data [facility]STRACTION Provider, Abstract 05/13/2025 External Device Data [facility]CTION Provider, Abstract 04/14/2025 External Device Data [facility]CTION Provider, Abstract from Last 3 Months Social History Tobacco Use Types Packs/Day Years Used Date Smoking Tobacco: Never Assessed Sex and Gender Information Value Date Recorded Sex Assigned at Not on file Legal Sex Male 9:17 AM CDT Gender Identity Not on file Sexual Orientation Not on file Plan of Treatment Health Maintenance Due Date Last Done Comments DTAP/TDAP/TD VACCINES (1 - Tdap) 1954 PNEUMOCOCCAL VACCINE 50+ YEARS (1 of 1 - PCV) 03/10/19 86 ZOSTER VACCINE (1 of 2) 1986 RSV VACCINE (60+ or ) (1 - 1-dose 75+ series) 2011 INFLUENZA VACCINE (#1) 2025 Insurance MEDICARE PART A AND B [facility] Telemedicine Clinic
--- OUTSIDE RECORDS SUMMARY | 2025-07-12 10:12 | XMS_ITS | Patient Health Record ---
Author Organization [facility] Address [address] [facility] [place] [address] Care Team Providers Care Developmental Behavioral Physician Name Role Phone Michelle POENLisa Primary Care Provider Unavaila TAM Chou Unavailable [phone] PULIDO JHONNY Unavailable [phone] Allergies No Known Allergies Results Component Value Reference Range Notes Urinalysis, Routine Reviewed date:12/08/2024 04:27:45 PM Interpretation: Performing Lab: Notes/Report: Urine-Color nora Appearance cloudy Glucose - Bilirubin - Ketones trace Specific [place] 1.030 Occult Blood 2+ pH 6.0 Urine Protein 1+ Urobilinogen,Semi-Qn - Nitrite, Urine - WBC Esterase - PSA, TOTAL (5363) Reviewed date:08/01/2024 09:11:05 AM Interpretation: Performing Lab:[place], [id number] [address] [facility], [id number] Lior Juarez MD Notes/Report: PSA, TOTAL 1.13 < OR = 4.00 ng/mL The total PSA value from this assay system is standardized against the WHO standard. The test result will be approximately 20% lower when compared to the equimolar-standardized total PSA (Kathy Fam). Comparison of serial PSA results should be interpreted with this fact in mind. This test was performed using the Siemens chemiluminescent method. Values obtained from different assay methods cannot be used interchangeably. PSA levels, regardless of value, should not be interpreted as absolute evidence of the presence or absence of disease. Your request to have a duplicate copy faxed has been acknowledged. Queued to: [id number] Urinalysis, Routine Reviewed date:08/12/2024 08:21:23 AM Interpretation: Performing Lab: Notes/Report: Urine-Color yellow Appearance clear Glucose - Bilirubin - Ketones - Specific [place] 1.030 Occult Blood - pH 5.5 Urine Protein - Urobilinogen,Semi-Qn - Nitrite, Urine - WBC Esterase - Urinalysis Gross Exam - Reason For Referral Reason Referral to [facility] for Xgeva shots. Diagnosis 1 Prostate cancer (C61 ) Referral Organization [employer] Referring Provider First Name JHONNY Referring Provider Last Name PULIDO Referring Provider Speciality Urology Referred Provider Specialty Oncology Referral Priority Routine Referral Appointment Date 12/31/2024 Medications Medication SIG (Take, Route, Frequency, Duration) Notes Start Date End Date Status oxyCODONE ER 9 MG 1 capsule with food Orally every 12 hrs Active fentaNYL 25 MCG/HR 1 patch to skin Transdermal Active Xtandi 40 MG 2 capsules Orally Once a day Active Cipro 500 MG 1 tablet Orally every 12 hrs Active HYDROcodone-Acetami nophen 5-325 MG 1 tablet as needed Orally every 6 hrs Active Bicalutamide 50 MG TAKE 1 TABLET BY MOUTH DAILY; Duration: 90 Active Nubeqa 300 MG 2 tablets Orally twice daily; Duration: 30 days ran out yesterday 07/28/2024 Active Orgovyx 120 MG 1 tablet Orally Once a day; Duration: 30 days 07/28/2024 02/18/2026 Not-Taking Xgeva 120 MG/1.7ML as directed Subcutaneous Monthly Unknown Problems Problem Type SNOMED Code ICD Code Onset Dates Problem Status W/U Status Risk Notes Problem Increased frequency of urination (170416902) Increased urinary frequency (R35.0) Active confirmed Problem Malignant tumor of prostate (518549442) Prostate cancer (C61) Active confirmed Problem Osteochondropathy (71940366) Bone lesion (M89.9) Active confirmed Vital Signs Heart Rate 84 /min 03/09/2025 Height-cm 172.72 cm 03/09/2025 Blood pressure diastolic 52 mm Hg 03/09/2025 Weight-kg 59.87 kg 03/09/2025 Height 68 in 03/09/2025 Blood pressure systolic 112 mm Hg 03/09/2025 Weight 132 lbs 03/09/2025 BMI 20.07 kg/m2 03/09/2025 Procedures Procedure Date Ordered Date Performed Result Body Sit e Bladder Scan 12/08/2024 12/08/2024 0ml Encounters Encounter Location Date Provider Diagnosis [facility] [address] [facility] [place] [address] 01/26/2025 JHONNY VELSÁQUEZER [facility] [address] [facility] [place] [address] 06/15/2025 JHONNY PULIDO Prostate cancer C61 ; Bone lesion M89.9 ; Increased urinary frequency R35.0 and Complicated UTI (urinary tract infection) N39.0 [facility] [address] [facility] [place] [address] 08/11/2024 JHONNY PULIDO Prostate cancer C61 ; Bone lesion M89.9 and Increased urinary frequency R35.0 [facility] [address] [facility] [place] [address] 12/08/2024 JHONNY PULIDO Prostate cancer C61 ; Bone lesion M89.9 ; Increased urinary frequency R35.0 and Complicated UTI (urinary tract infection) N39.0 [facility] [address] [facility] [place] [address] 03/09/2025 JHONNY PULIDO Prostate cancer C61 ; Bone lesion M89.9 ; Increased urinary frequency R35.0 and Complicated UTI (urinary tract infection) N39.0 [facility] [address] [facility] [place] [address] 07/28/2024 JHONNY PULIDO [facility] [address] [facility] [place] [address] 07/28/2024 JHONNY PULIDO Prostate cancer C61 [facility] [address] [facility] [place] [address] 09/02/2024 TAM REANO [facility] [address] [facility] [place] [address] 09/30/2024 TAM REANO Prostate cancer C61 [facility] [address] [facility] [place] [address] 10/30/2024 TAM REANO [facility] [address] [facility] [place] [address] 11/18/2024 TAM REANO [facility] [address] [facility] [place] [address] 11/25/2024 TAM REANO Prostate cancer C61 [facility] [address] [facility] [place] [address] 02/23/2025 JHONNY PULIDO Prostate cancer C61 [facility] [address] [facility] [place] [address] 03/02/2025 TAM RYAN [facility] [address] [facility] [place] [address] 05/13/2025 TAM RYAN Prostate cancer C61 [facility] [address] [facility] [place] [address] 05/14/2025 JHONNY PULIDO Assessments Encounter Date Diagnosis (ICD Code) Assessment Notes Treatment Notes Treatment Clinical Notes Section Notes 03/09/2025 Prostate cancer (ICD-10 - C61) C61 - Malignant neoplasm of prostate 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 BRCA2 mutation positive status impacts prognosis and treatment options. 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 BRCA2 mutation positive status impacts prognosis and treatment options. 05/13/2025 Prostate cancer (ICD-10 - C61) 02/23/2025 Prostate cancer (ICD-10 - C61) 12/08/2024 Prostate cancer (ICD-10 - C61) 89 yo male with [place] 9 prostate cancer in 12/12 cores. PNBx on 06/17/2024. Pathology resulted in multiple cores positive for [place] 5+4=9, [place] 4+5=9, and Jenny 4+3=7; throughout prostate. T2c CaP. He is on Orgovyx and Nubeqa. Referral sent today to [facility] to restart Xgeva. He will continue Orgovyx and Nubeqa. For his chronic pain, I will prescribe percocet until he can establish with [facility]. He will return in 3m with PSA and see Lola Kimbrough APRN. Return sooner with any concerns Plan: Continue ABX given for UTI -Rx percocet 5mg prn for chronic pain -Referral sent today to [facility] to restart Xgeva injections -Continue Orgovyx and Nubeqa, consider switching Nubeqa for another [place] anmol if PSA continues to rise -RTC in 3m with PSA and see Lola Kimbrough APRN I, Stormy Kapelski, Scribe, am scribing for, and in the presence of, Dr. Pulido. I, Dr. Jhonny Pulido, personally performed the services prescribed in this documentation, as scribed by Mindi Das, in my presence, and it is both accurate and complete. 12/08/2024 Bone lesion (ICD-10 - M89.9) 89 yo male with [place] 9 prostate cancer in 12/12 cores. PNBx on 06/17/2024. Pathology resulted in multiple cores positive for [place] 5+4=9, [place] 4+5=9, and [place] 4+3=7; throughout prostate. T2c CaP. He is on Orgovyx and Nubeqa. Referral sent today to [facility] to restart Xgeva. He will continue Orgovyx and Nubeqa. For his chronic pain, I will prescribe percocet until he can establish with [facility]. He will return in 3m with PSA and see Lola Kimbrough APRN. Return sooner with any concerns Plan: Continue ABX given for UTI -Rx percocet 5mg prn for chronic pain -Referral sent today to [facility] to restart Xgeva injections -Continue Orgovyx and Nubeqa, consider switching Nubeqa for another [place] anmol if PSA continues to rise -RTC in 3m with PSA and see Lola Kimbrough APRN I, Stormy Kapelski, Scribe, am scribing for, and in the presence of, Dr. Pulido. I, Dr. Jhonny Pulido, personally performed the services prescribed in this documentation, as scribed by Mindi Das, in my presence, and it is both accurate and complete. 11/25/2024 Prostate cancer (ICD-10 - C61) 09/30/2024 Prostate cancer (ICD-10 - C61) 08/11/2024 Prostate cancer (ICD-10 - C61) 89 yo male with [place] 9 prostate cancer in 12/12 cores. PNBx on 06/17/2024. Pathology resulted in multiple cores positive for [place] 5+4=9, [place] 4+5=9, and [place] 4+3=7; throughout prostate. T2c CaP. He is on bicalutimide and Nubeqa. PSA down to 1.13 on 07/31/24. Will need to review PET scan from [facility] in [place]. Continue Bicalutamide until pt receives Orgovyx. Will continue Nubeqa Samples given today. He will return in 4m with PSA. Return sooner with any concerns Plan: continue Xgeva injections with Oncology in [place] - Will need to obtain PET scan report from [facility]. -Continue Bicalutamide until pt receives Orgovyx. - Will continue Nubeqa. - RTC in 4m with PSA and PVR or call sooner with any concerns Mindi Ordoñez Scribe, am scribing for, and in the presence of, Dr. Pulido. I, Dr. Jhonny Pulido, personally performed the services prescribed in this documentation, as scribed by Mindi Das, in my presence, and it is both accurate and complete. 08/11/2024 Bone lesion (ICD-10 - M89.9) 89 yo male with [place] 9 prostate cancer in 12/12 cores. PNBx on 06/17/2024. Pathology resulted in multiple cores positive for [place] 5+4=9, [place] 4+5=9, and [place] 4+3=7; throughout prostate. T2c CaP. He is on bicalutimide and Nubeqa. PSA down to 1.13 on 07/31/24. Will need to review PET scan from [facility] in [place]. Continue Bicalutamide until pt receives Orgovyx. Will continue Nubeqa Samples given today. He will return in 4m with PSA. Return sooner with any concerns Plan: continue Xgeva injections with Oncology in - Will need to obtain PET scan report from [facility]. -Continue Bicalutamide until pt receives Orgovyx. - Will continue Nubeqa. - RTC in 4m with PSA and PVR or call sooner with any concerns Mindi Ordoñez Scribe, am scribing for, and in the presence of, Dr. Pulido. I, Dr. Jhonny Pulido, personally performed the services prescribed in this documentation, as scribed by Mindi Das, in my presence, and it is both accurate and complete. 07/28/2024 Prostate cancer (ICD-10 - C61) 08/11/2024 Increased urinary frequency (ICD-10 - R35.0) 89 yo male with [place] 9 prostate cancer in 12/12 cores. PNBx on 06/17/2024. Pathology resulted in multiple cores positive for [place] 5+4=9, [place] 4+5=9, and [place] 4+3=7; throughout prostate. T2c CaP. He is on bicalutimide and Nubeqa. PSA down to 1.13 on 07/31/24. Will need to review PET scan from [facility] in [place]. Continue Bicalutamide until pt receives Orgovyx. Will continue Nubeqa Samples given today. He will return in 4m with PSA. Return sooner with any concerns Plan: continue Xgeva injections with Oncology in - Will need to obtain PET scan report from [facility]. -Continue Bicalutamide until pt receives Orgovyx. - Will continue Nubeqa. - RTC in 4m with PSA and PVR or call sooner with any concerns IMindi Scribe, am scribing for, and in the presence of, Dr. Pulido. I, Dr. Jhonny Pulido, personally performed the services prescribed in this documentation, as scribed by Mindi Das, in my presence, and it is both accurate and complete. 12/08/2024 Increased urinary frequency (ICD-10 - R35.0) 89 yo male with [place] 9 prostate cancer in 12/12 cores. PNBx on 06/17/2024. Pathology resulted in multiple cores positive for [place] 5+4=9, [place] 4+5=9, and [place] 4+3=7; throughout prostate. T2c CaP. He is on Orgovyx and Nubeqa. Referral sent today to [facility] to restart Xgeva. He will continue Orgovyx and Nubeqa. For his chronic pain, I will prescribe percocet until he can establish with [facility]. He will return in 3m with PSA and see Lola Kimbrough APRN. Return sooner with any concerns Plan: Continue ABX given for UTI -Rx percocet 5mg prn for chronic pain -Referral sent today to [facility] to restart Xgeva injections -Continue Orgovyx and Nubeqa, consider switching Nubeqa for another [place] anmol if PSA continues to rise -RTC in 3m with PSA and see Lola Kimbrough APRN I, Stormy Kapelski, Scribe, am scribing for, and in the presence of, Dr. Pulido. I, Dr. Jhonny Pulido, personally performed the services prescribed in this documentation, as scribed by Mindi Das, in my presence, and it is both accurate and complete. 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 BRCA2 mutation positive status impacts prognosis and treatment options. 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 BRCA2 mutation positive status impacts prognosis and treatment options. 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 BRCA2 mutation positive status impacts prognosis and treatment options. 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 BRCA2 mutation positive status impacts prognosis and treatment options. 12/08/2024 Complicated UTI (urinary tract infection) (ICD-10 - N39.0) 89 yo male with [place] 9 prostate cancer in 10/09 cores. PNBx on 06/17/2024. Pathology resulted in multiple cores positive for [place] 5+4=9, [place] 4+5=9, and [place] 4+3=7; throughout prostate. T2c CaP. He is on Orgovyx and Nubeqa. Referral sent today to [facility] to restart Xgeva. He will continue Orgovyx and Nubeqa. For his chronic pain, I will prescribe percocet until he can establish with [facility]. He will return in 3m with PSA and see Lola Kimbrough APRN. Return sooner with any concerns Plan: Continue ABX given for UTI -Rx percocet 5mg prn for chronic pain -Referral sent today to [facility] to restart Xgeva injections -Continue Orgovyx and Nubeqa, consider switching Nubeqa for another [place] anmol if PSA continues to rise -RTC in 3m with PSA and see Lola Kimbrough APRN IMindi Scribe, am scribing for, and in the presence of, Dr. Pulido. I, Dr. Jhonny Pulido, personally performed the services prescribed in this documentation, as scribed by Mindi Das, in my presence, and it is both accurate and complete. 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 BRCA2 mutation positive status impacts prognosis and treatment options. 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 BRCA2 mutation positive status impacts prognosis and treatment options. 03/09/2025 Other #Metastatic Castrate-Resist ant Prostate Cancer Continue current treatment regimen with Xtandi and Talzenna via [facility] Continue Orgovyx for testosterone suppression Continue monthly Xgeva injections Monitor PSA response to new treatment regimen Follow up with Dr. Ross next week for ongoing oncologic management #Pain Management Continue current pain management regimen Medications to be filled at clinic pharmacy #Follow Up Return to clinic in 3 months (May 2025) with PSA Continue coordination of care with oncology Your PSA level has increased, showing that your prostate cancer is growing despite the hormone treatments. You have been started on new medications (Xtandi and Tilsena) to help fight the cancer. Continue taking all your medications as prescribed: - Xtandi and Talzenna (new medications) - Orgovyx (hormone therapy) - Monthly Xgeva shots for bone health - Pain medication as needed Important appointments: - See Dr. Ross next Sunday - Return to our office in 3 months (May 2025) Call if you experience any new or worsening symptoms. Continue to get your medications through mail delivery when possible, and use the clinic pharmacy for pain medications. 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 BRCA2 mutation positive status impacts prognosis and treatment options. Plan Of Treatment Pending Test Test Name Order Date Bone Scan [id number] 05/22/2024 PSA, total (cpt 28551) 05/13/2025 PSA, total (cpt 59625) 09/30/2024 Basic Metabolic Panel 05/22/2024 CBC w/ Auto Diff 05/22/2024 Electrocardiogram, 12 Lead Tracing-[id number] 05/22/2024 PSA-Diagnostic 11/25/2024 PSA-Diagnostic 07/07/2024 Insurance Providers Payer Name Payer Address Payer Phone Subscriber Number Group Number Insured Name Patient Relationship to Insured Coverage Start Date Coverage End Date [place] [address] [place] [id number] [phone] [id number] Bernardo Ahn Self - patient is the insured for Life Secondary to Medicare [address] [place], [place] [id number] Bernardo Ahn Self - patient is the insured Medical (General) History Surgical History Surgery Date(Month/Year) right rotator cuff prostate bx
--- NOTE | 2025-07-12 10:25 | W.ED.WEAKNES ---
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 He states he just had generalized weakness not feeling like getting out of bed he denies any fevers denies any cough he denies any vomiting or diarrhea Associated symptoms: Denies chest pain, chills, dysuria, fever(s), headache(s), nausea or vomiting Related Data Home Medications ?Medication ?Instructions ?Recorded ?Confirmed bisacodyl 5 mg tablet,delayed 5 mg PO DAILY 06/23/24 02/27/25 release (Dulcolax (bisacodyl)) relugolix 120 mg tablet 120 mg PO DAILY 08/12/24 02/27/25 enzalutamide 80 mg tablet (Xtandi) 80 mg PO BID 02/27/25 02/27/25 fentanyl 25 mcg/hr transdermal See Rx Instructions .Route .COMPLEX 02/27/25 02/27/25 patch nitrofurantoin 100 mg PO BID 02/27/25 02/27/25 monohydrate/macrocrystals 100 mg capsule oxycodone 10 mg tablet 10 - 15 mg PO Q6H PRN Pain 02/27/25 02/27/25 talazoparib 0.5 mg capsule 0.5 mg PO DAILY 02/27/25 02/27/25 (Talzenna) Previous Rx's ?Medication ?Instructions ?Recorded CO-Poly Custom insoles #1 ea 04/26/23 Allergies Allergy/AdvReac Type Severity Reaction Status Date / Time No Known Allergies Allergy Verified 07/12/25 10:17 Review of Systems Const: Reports: fatigue and malaise; Denies: fever(s), chills, body aches or change in appetite ENMT: Denies: throat pain or dental pain Card: Denies: chest pain Resp: Denies: dyspnea GI: Denies: abdominal pain, nausea, vomiting or diarrhea : Denies: dysuria Musc: Denies: neck pain or back pain Skin/Breast: Denies: rash Neuro: Denies: headache(s) PFSH ED PFSH: Medical History Pain of right sacroiliac joint Sciatica, right side Fatigue History of nonmelanoma skin cancer Surgical History S/P right rotator cuff repair Social History Smoking and tobacco/nicotine status: never used tobacco/nicotine Quit status (tobacco/nicotine): has quit using Year quit tobacco: early to mid 1960s Former quit date comment: 5 years total tobacco use Physical Exam Const: COMMON NORMALS: patient oriented x3 HENMT: COMMON NORMALS: normocephalic and atraumatic HEAD & SCALP: normocephalic and atraumatic Neck/C-Spine: COMMON NORMALS: full ROM and supple Chest: COMMONS NORMALS: normal inspection of the chest Resp: COMMON NORMALS: normal respiratory effort, No retractions, No use of accessory muscles and clear to auscultation bilaterally AUSCULTATION: clear to auscultation bilaterally Cardio: COMMON NORMALS: regular rate, regular rhythm and No murmurs present (Cardio) RATE: regular rate RHYTHM: regular rhythm GI: COMMON NORMALS: Normal to inspection, nondistended, normoactive bowel sounds present, Soft to palpation, non-tender and no masses PALPATION: Yes Soft to palpation Extremity: COMMON NORMALS: normal to inspection and full ROM Neuro: COMMON NORMALS: patient oriented x3, moves all extremities and no focal motor deficits Psych: COMMON NORMALS: mental status grossly normal, Normal thought process present and cooperative THOUGHT PROCESS: Normal thought process present Skin: COMMON NORMALS: no rashes or lesions noted and no wounds GENERAL SKIN EXAM: no rashes or lesions noted Course Vital Signs: Vital signs: Vital Signs Temperature 98.3 F 07/12/25 15:48 Pulse Rate 73 07/12/25 15:48 Respiratory Rate 16 07/12/25 15:48 Blood Pressure 115/55 07/12/25 15:48 Pulse Oximetry 98 07/12/25 15:48 Oxygen Delivery Me thod Room Air 07/12/25 13:00 MDM - Weakness Medical Decision Making Patient presents here with generalized weakness was found to be anemic. I did offer him admission but he states that he would rather just be transfused and go home. Did transfuse him 2 units. He is to follow-up with oncologist return if worsening he understands agrees to plan. Medical Records I reviewed the patient's medical records. Lab Data I reviewed the patient's lab results. 07/12/25 10:31 07/12/25 10:31 Laboratory Results WBC 3.67 10^3/uL (3.29-11.43) 07/12/25 10:31 RBC 1.56 10^6/uL (3.85-5.65) L 07/12/25 10:31 Hgb 5.30 g/dL (11.27-16.99) L* 07/12/25 10:31 Hct 15.5 % (37-53) L* 07/12/25 10:31 MCV 99.4 fl (82-101) 07/12/25 10:31 MCH 34.0 pg (27-33) H 07/12/25 10:31 MCHC 34.2 g/dL (30-55) 07/12/25 10:31 RDW 24.0 % (12.1-15.1) H 07/12/25 10:31 Plt Count 87 10^3/cmm (157-399) L 07/12/25 10:31 MPV 10.4 fL (7.4-10.4) 07/12/25 10:31 Neut % (Auto) 65.7 % 07/12/25 10:31 Lymph % (Auto) 21.0 % 07/12/25 10:31 [place] % (Auto) 10.1 % 07/12/25 10:31 Eos % (Auto) 1.6 % 07/12/25 10:31 Baso % (Auto) 0.0 % 07/12/25 10:31 Neut # (Auto) 2.41 10^3/uL (1.8-7.7) 07/12/25 10:31 Lymph # (Auto) 0.8 10^3/uL (0.8-4.8) 07/12/25 10:31 [place] # (Auto) 0.4 10^3/uL (0.2-0.9) 07/12/25 10:31 Eos # (Auto) 0.1 10^3/uL (0.0-0.8) 07/12/25 10:31 Baso # (Auto) 0.0 10^3/uL (0.0-0.1) 07/12/25 10:31 Nucleated RBC % (auto) 0 % 07/12/25 10:31 Nucleated RBCs # 0.0 /100WBC 07/12/25 10:31 Sodium 136 mmol/L (136-145) 07/12/25 10:31 Potassium 3.1 mmol/L (3.5-5.1) L 07/12/25 10:31 Chloride 103 mmol/L (98-107) 07/12/25 10:31 Carbon Dioxide 22 mmol/L (22-29) 07/12/25 10:31 Anion Gap 14.1 (5-19) 07/12/25 10:31 BUN 18 mg/dL (8-23) 07/12/25 10:31 Creatinine 0.6 mg/dL (0.7-1.2) L 07/12/25 10:31 GFR Calculation Not Reportable 07/12/25 10:31 Glucose 114 mg/dL (65-115) 07/12/25 10:31 Calculated Osmolality 285 mOsm/kg (285-295) 07/12/25 10:31 Calcium 7.4 mg/dL (8.5-10.5) L 07/12/25 10:31 Magnesium 2.5 mg/dL (1.7-2.3) H 07/12/25 10:31 Total Bilirubin 1.8 mg/dL (0.15-1.2) H 07/12/25 10:31 AST 24 U/L (0-40) 07/12/25 10:31 ALT 7 U/L (0-41) 07/12/25 10:31 Alkaline Phosphatase 361 U/L (40-130) H 07/12/25 10:31 Total Protein 5.5 g/dL (6.6-8.7) L 07/12/25 10:31 Albumin 3.7 g/dL (3.5-5.2) 07/12/25 10:31 Globulin 1.8 g/dL (1.3-4.6) 07/12/25 10:31 TSH 1.72 uIU/mL (0.27-4.20) 07/12/25 10:31 Blood Type O Positive 07/12/25 11:05 Rho(D) Type Rh positive 07/12/25 11:05 Antibody Screen Negative 07/12/25 11:05 Crossmatch See Detail 07/12/25 11:05 All radiology interpretation(s) finalized by discharge EKG Data EKG 1: I personally reviewed and interpreted this EKG as follows: EKG interpretation date: 07/12/25 EKG interpretation time: 10:35 Interpretation: nsr hr [address] elevation qrs 89 qtc 423 Discharge Plan Discharge Patient Disposition: Home Clinical Impression: Anemia Condition: Stable Prescriptions: No Action bisacodyl [Dulcolax (bisacodyl)] 5 mg tablet,delayed release (DR/EC) 5 mg PO DAILY (DME) CO-Poly Custom insoles See Rx Instructions .Route .MEDSUPPLY Qty: 1 0RF Rx Instructions: As directed by [facility] relugolix 120 mg tablet 120 mg PO DAILY fentanyl 25 mcg/hr patch 72 hour See Rx Instructions .ROUTE .COMPLEX Rx Instructions: APPLY 1 PATCH TOPICALLY TO THE SKIN EVERY 72 HOURS. REMOVE OLD PATCH BEFORE APPLYING NEW PATCH. nitrofurantoin monohyd/m-cryst 100 mg capsule 100 mg PO BID oxycodone 10 mg tablet 10 - 15 mg PO Q6H PRN (Reason: Pain) Xtandi 80 mg tablet 80 mg PO BID Talzenna 0.5 mg capsule 0.5 mg PO DAILY Discharge Orders: Discharge ED (Routine); Ordered 07/12/25 Ordered By: Alan Ortiz Referrals: Lisa Martinez FNP [Primary Care Provider, Unknown] - 4-7 days Discharge Diet: Advance as tolerated Discharge Activity: Resume usual activity Patient Instructions: Anemia (ED) Print Language: Bahraini Coding Level of Care Code ED Outbound [employer] Consult[employer] for [employer]
--- NOTE | 2025-07-12 10:35 | ECG_ITS ---
[employer] - Share Your Passion![facility] Test Date: 2025-07-12 Pat Name: Bernardo Ahn Department: Room: Gender: Male [employer]: : [phone] Requested By: Alan Ortiz Order Number: [id number] Cornel MD: Wil Rizo M.D. Measurements Intervals [place] Rate: 71 P: 58 ME: 165 QRS: -5 QRSD: 89 T: 47 QT: 400 QTc: 437 Interpretive Statements SINUS RHYTHM MINIMAL ST DEPRESSION [0.025+ mV ST DEPRESSION] Compared to ECG 05/28/2024 08:53:16 NO SIGNIFICANT CHANGE Electronically Signed On 07-12-2025 20:16:00 CDT by Wil Rizo M.D. [email or web address]
[2025-07-12 10:43] LABS: Mean Corpuscular HGB Conc 34.2 g/dL (30-55); Mean Corpuscular Hemoglobin 34.0 pg (27-33); Mean Corpuscular Volume 99.4 fl (82-101); Nucleated Red Blood Cells % 0 %; Platelet Count 87 10^3/cmm (157-399); Red Blood Count 1.56 10^6/uL (3.85-5.65); White Blood Count 3.67 10^3/uL (3.29-11.43)
[2025-07-12 11:01] LABS: Hematocrit 15.5 % (37-53); Hemoglobin 5.30 g/dL (11.27-16.99)
[2025-07-12 11:09] LABS: Alanine Aminotransferase 7 U/L (0-41); Albumin Level 3.7 g/dL (3.5-5.2); Alkaline Phosphatase 361 U/L (40-130); Anion Gap 14.1 (5-19); Aspartate Amino Transferase 24 U/L (0-40); Blood Urea Nitrogen 18 mg/dL (8-23); Calcium 7.4 mg/dL (8.5-10.5); Carbon Dioxide 22 mmol/L (22-29); Chloride 103 mmol/L (98-107); Creatinine Clr Calc Pharmacy 58.0249; Globulin 1.8 g/dL (1.3-4.6); Glucose 114 mg/dL (65-115); Magnesium 2.5 mg/dL (1.7-2.3); Osmolality Calculated 285 mOsm/kg (285-295); Potassium 3.1 mmol/L (3.5-5.1); Sodium 136 mmol/L (136-145); Thyroid Stimulating Hormone 1.72 uIU/mL (0.27-4.20); Total Protein 5.5 g/dL (6.6-8.7)
--- NOTE | 2025-07-12 12:57 | PC.NURSE ---
Spoke with Lakshmi in Lab, I was trying to document my 15 minute vitals on my first unit of blood and the computer stated that my unit was locked by blood bank. Lakshmi tried to unlock the unit of blood so I could chart on it and she could not get it unlocked either. Lakshmi then just re-issued my unit of blood and it then unlocked. I then charted my vitals and started the unit of blood in the computer. I originally started the first unit of blood at 1234 with vitals of temp 98.1, HR 68, RR 16, 98% on RA.
== END 2025-07-12 16:20 | disposition home or self-care (01) ==
PROVIDERS: Emergency Provider Emergency Medicine; PCP Nurse Practitioner Family
DX: D64.9 Anemia, unspecified (principal); Z87.891 Personal history of nicotine dependence; Z85.828 Personal history of other malignant neoplasm of skin
CPT/HCPCS: 36415; 36430; 80053; 83735; 84443; 85025; 86850; 86900; 86920; 93005; 99285; J7030; P9016